=== PATIENT | male | born 1985 | race American Indian/Alaskan Native ===

== ENCOUNTER 2016-12-15 15:40 | Inpatient (IN) | payer OTHER ==
[2016-12-15] MEDS ORDERED: VALIUM IM ONE (16:43)
[2016-12-15] MEDS ORDERED: KEPPRA PO ONE (16:58)
[2016-12-15 17:00] LABS: Urine Drugs of Abuse Note Disclamer
--- NOTE | 2016-12-15 17:07 | Emergency Department Report ---
ED Seizure HPI - General Chief Complaint: Seizure Stated Complaint: SEIZURE Time Seen by Provider: 12/15/16 16:41 Source: patient, family, EMS (ems notes not available at time of chart dictation), RN notes reviewed, old records reviewed Mode of arrival: Stretcher Limitations: Altered Mental Status - History of Present Illness Initial Comments: This is a 31-year-old male. He is previously unknown to me. Has a past medical history of seizure disorder, supposed to be on carbamazepine, 300 mg twice daily, and Keppra, 500 mg twice daily, has a known history of noncompliance with antiepileptic drugs, is known to consume and abuse marijuana. Patient is brought to the hospital by EMS for possible seizure. EMS documentation is not available at this time. The patient reports that he's had a seizure, but he cannot tell me how he knows he had a seizure. He is somewhat confused in the emergency room, denies pain except for head pain, but he cannot further describe the head pain. He is not homicidal or suicidal, he denies chest pain and shortness of breath. He makes multiple requests to drink water. MD Complaint: possible seizure -: unknown Description of Episode: post-event confusion Seizure History: known seizure disorder, history of non-compliance Place: home Possible Precipitating Event: other (unknown) Associated Symptoms: confusion - Related Data Previous Rx's Medication Instructions Recorded Last Taken Type carBAMazepine [TEGretol] 300 mg PO BID 30 Days 10/23/16 Unknown Rx levETIRAcetam [Keppra TAB] 500 mg PO BID #60 tablet 10/23/16 Unknown Rx Allergies Allergy/AdvReac Type Severity Reaction Status Date / Time Penicillins Allergy Rash Verified 03/02/16 16:12 ED Review of Systems ROS: Stated complaint: SEIZURE Other details as noted in HPI Comment: Unobtainable due to pts medical conditions Constitutional: malaise Eyes: denies: vision change ENT: denies: epistaxis Respiratory: denies: cough Cardiovascular: denies: chest pain Gastrointestinal: denies: abdominal pain Genitourinary: as per HPI Musculoskeletal: as per HPI Skin: as per HPI Neurological: headache, weakness Psychiatric: as per HPI ED Past Medical Hx - Past Medical History Hx Congestive Heart Failure: No Hx Diabetes: No Hx Seizures: Yes Hx Asthma: No Hx COPD: No Hx HIV: No Additional medical history: closed head injury 2003 - Surgical History Additional Surgical History: left hand surgery. left leg surgery- steel rafael - Social History Smoking Status: Current Every Day Smoker Substance Use Type: None - Medications Home Medications: Home Medications Medication Instructions Recorded Confirmed Last Taken Type carBAMazepine [TEGretol] 300 mg PO BID 30 Days 10/23/16 12/15/16 Unknown Rx levETIRAcetam [Keppra TAB] 500 mg PO BID #60 tablet 10/23/16 12/15/16 Unknown Rx ED Physical Exam - General Limitations: Altered Mental Status General appearance: in no apparent distress - Head Head exam: Present: atraumatic, normocephalic - Eye Eye exam: Present: normal appearance, PERRL, EOMI. Absent: nystagmus - ENT ENT exam: Present: normal exam, normal orophraynx, mucous membranes moist, normal external ear exam - Neck Neck exam: Present: normal inspection, full ROM. Absent: tenderness, meningismus - Respiratory Respiratory exam: Present: normal lung sounds bilaterally. Absent: respiratory distress, wheezes, rales, rhonchi, stridor, chest wall tenderness - Cardiovascular Cardiovascular Exam: Present: regular rate, normal rhythm, normal heart sounds. Absent: bradycardia, tachycardia, irregular rhythm, systolic murmur, diastolic murmur, rubs, gallop - GI/Abdominal GI/Abdominal exam: Present: soft, normal bowel sounds. Absent: distended, tenderness, guarding, rebound, rigid, pulsatile mass - Rectal Rectal exam: Present: deferred - Extremities Exam Extremities exam: Present: normal inspection, full ROM, normal capillary refill. Absent: tenderness, pedal edema, joint swelling, calf tenderness - Back Exam Back exam: Present: normal inspection, full ROM. Absent: tenderness, CVA tenderness (R), CVA tenderness (L), muscle spasm, paraspinal tenderness, vertebral tenderness - Neurological Exam Neurological exam: Present: alert (patient is alert to name, month, location. However, he cannot recall events that led to him to come to the emergency room, he makes multiple requests to drink, and he is somewhat postictal.), oriented X3 - Psychiatric Psychiatric exam: Present: anxious - Skin Skin exam: Present: warm, dry, intact, normal color. Absent: rash ED Course Vital Signs 12/15/16 12/15/16 12/15/16 16:14 16:17 17:10 Temperature 97.9 F Pulse Rate 69 Pulse Rate [ From Monitor] Respiratory 16 18 18 Rate Blood Pressure 120/63 [Left] O2 Sat by Pulse 99 98 98 Oximetry 12/15/16 12/16/16 12/16/16 19:18 01:43 04:00 Temperature Pulse Rate 74 87 Pulse Rate [ 69 From Monitor] Respiratory 16 16 20 Rate Blood Pressure 130/67 140/89 [Left] O2 Sat by Pulse 95 98 95 Oximetry 12/16/16 05:54 Temperature Pulse Rate 85 Pulse Rate [ From Monitor] Respiratory 20 Rate Blood Pressure 146/63 [Left] O2 Sat by Pulse 94 Oximetry - Reevaluation(s) Reevaluation #1: 12/15/16 17:05 Differential diagnosis: Breakthrough seizure secondary to medication noncompliance, drug use, marijuana abuse, intracranial injury, cervical spine injury, pneumonia, postictal state Assessment and plan: 31-year-old male with known history of seizure disorder, marijuana consumption, noncompliance with antiepileptic drug therapy. His neurologic exam is nonfocal, however he is agitated, is a poor historian, and required diazepam to allow him to participate in his medical care. No family is available for collateral information at this time. His old medical records are reviewed. He will be loaded empirically with Keppra, carbamazepine. We will obtain x-ray of the chest, CT of the brain and cervical spine. We will reassess after initial data points. Reevaluation #2: 12/15/16 17:45 Sleeping comfortably. Elevated CK appreciated, does not require IV fluids, and we'll decrease on its own with oral fluids. Mild decrease in CO2 likely secondary to convulsive activity. X-ray of the chest negative. CT scans are pending. Reevaluation #3: 12/15/16 18:36 patient threw up while receiving oral Keppra. The patient is refusing CT scan. I go back to evaluate the patient, and he is arousable to name, but cannot answer open-ended or close ended questions. I suspect that he is sedated from the Valium, and postictal. He does not demonstrate decision- making capacity at this time. This is most likely combination of the aforementioned factors. does not require 1013. he simply needs to metabolize and wake up from his postictal event. He will be medicated with Haldol to facilitate acquisition of diagnostic studies. IV fluids, IV Keppra, IV nausea medication ordered as well. Reevaluation #4: 12/16/16 01:36 patient has been observed in the ER for a prolonged period of time. He is sleepy, but arousable. He ambulated with difficulty with a one- person assist. During his trial of ambulation, he had to stop, date puller next to a garbage spell, and vomited multiple times. Patient has been observed in the ER for a prolonged period of time, and treated appropriately. However, given his relative unsteady gait, intractable nausea or vomiting, I don't believe he is safe for outpatient management at this time. Case is discussed with the Hospital physician, Dr. Wing, who accepts the patient to his service. ED Medical Decision Making - Lab Data Result diagrams: 12/16/16 08:27 12/15/16 17:03 Vital Signs 12/15/16 16:14 Respiratory 16 Rate O2 Sat by Pulse 99 Oximetry Vital Signs 12/15/16 12/15/16 12/15/16 16:14 16:17 17:10 Temperature 97.9 F Pulse Rate 69 Respiratory 16 18 18 Rate Blood Pressure 120/63 [Left] O2 Sat by Pulse 99 98 98 Oximetry Lab Results 12/15/16 12/15/16 12/15/16 Range/Units 16:39 16:39 16:41 WBC (4.5-11.0) K/mm3 RBC (3.65-5.03) M/mm3 Hgb (11.8-15.2) gm/dl Hct (35.5-45.6) % MCV (84-94) fl MCH (28-32) pg MCHC (32-34) % RDW (13.2-15.2) % Plt Count (140-440) K/mm3 Sodium (137-145) mmol/L Potassium (3.6-5.0) mmol/L Chloride (98-107) mmol/L Carbon Dioxide (22-30) mmol/L Anion Gap mmol/L BUN (9-20) mg/dL Creatinine (0.8-1.5) mg/dL Estimated GFR ml/min BUN/Creatinine Ratio % Glucose (75-100) mg/dL POC Glucose 90 (70-105) Calcium (8.4-10.2) mg/dL Total Creatine Kinase (55-170) units/L Urine Color Yellow (Yellow) Urine Turbidity Slightly-cloudy (Clear) Urine pH 5.0 (5.0-7.0) Ur Specific [place] 1.010 (1.003-1.030) Urine Protein <15 mg/dl (Negative) mg/dL Urine Glucose (UA) Neg (Negative) mg/dL Urine Ketones Tr (Negative) mg/dL Urine Blood Lg (Negative) Urine Nitrite Neg (Negative) Urine Bilirubin Neg (Negative) Urine Urobilinogen < 2.0 (<2.0) mg/dL Ur Leukocyte Esterase Mod (Negative) Urine WBC (Auto) 3.0 (0.0-6.0) /HPF Urine RBC (Auto) 3.0 (0.0-6.0) /HPF U Epithel Cells (Auto) 4.0 (0-13.0) /HPF Urine Mucus Few /HPF Urine Opiates Screen Presumptive negative Urine Methadone Screen Presumptive negative Ur Barbiturates Screen Presumptive negative Ur Phencyclidine Scrn Presumptive negative Ur Amphetamines Screen Presumptive negative U Benzodiazepines Scrn Presumptive negative Urine Cocaine Screen Presumptive negative 12/15/16 12/15/16 12/15/16 Range/Units 17:03 17:03 17:03 WBC 15.4 H (4.5-11.0) K/mm3 RBC 5.46 H (3.65-5.03) M/mm3 Hgb 15.1 (11.8-15.2) gm/dl Hct 46.4 H (35.5-45.6) % MCV 85 (84-94) fl MCH 28 (28-32) pg MCHC 33 (32-34) % RDW 13.9 (13.2-15.2) % Plt Count 175 (140-440) K/mm3 Sodium 140 (137-145) mmol/L Potassium 4.4 (3.6-5.0) mmol/L Chloride 106.1 (98-107) mmol/L Carbon Dioxide 17 L (22-30) mmol/L Anion Gap 21 mmol/L BUN 13 (9-20) mg/dL Creatinine 1.1 (0.8-1.5) mg/dL Estimated GFR > 60 ml/min BUN/Creatinine Ratio 11.81 % Glucose 91 (75-100) mg/dL POC Glucose (70-105) Calcium 8.7 (8.4-10.2) mg/dL Total Creatine Kinase 695 H (55-170) units/L Urine Color (Yellow) Urine Turbidity (Clear) Urine pH (5.0-7.0) Ur Specific [place] (1.003-1.030) Urine Protein (Negative) mg/dL Urine Glucose (UA) (Negative) mg/dL Urine Ketones (Negative) mg/dL Urine Blood (Negative) Urine Nitrite (Negative) Urine Bilirubin (Negative) Urine Urobilinogen (<2.0) mg/dL Ur Leukocyte Esterase (Negative) Urine WBC (Auto) (0.0-6.0) /HPF Urine RBC (Auto) (0.0-6.0) /HPF U Epithel Cells (Auto) (0-13.0) /HPF Urine Mucus /HPF Urine Opiates Screen Urine Methadone Screen Ur Barbiturates Screen Ur Phencyclidine Scrn Ur Amphetamines Screen U Benzodiazepines Scrn Urine Cocaine Screen Lab Results 12/15/16 Range/Units 16:41 POC Glucose 90 (70-105) - Radiology Data Radiology results: pending, report reviewed, image reviewed interpreted by me: X-ray of the chest is negative for acute disease. Noncontrast CT scan of the head and cervical spine are negative. Critical care attestation.: If time is entered above; I have spent that time in minutes in the direct care of this critically ill patient, excluding procedure time. ED Disposition Clinical Impression: Seizure, Noncompliance with medication regimen, Nausea and vomiting, Unsteady gait Disposition: OP ADMITTED IP TO THIS HOSP Is pt being admited?: Yes Does the pt Need Aspirin: No Condition: Fair
[2016-12-15 17:27] LABS: Hematocrit 46.4 % (35.5-45.6); Hemoglobin 15.1 gm/dl (11.8-15.2); Mean Corpuscular HGB Conc 33 % (32-34); Mean Corpuscular Hemoglobin 28 pg (28-32); Mean Corpuscular Volume 85 fl (84-94); Platelet Count 175 K/mm3 (140-440); Red Blood Count 5.46 M/mm3 (3.65-5.03); Red Cell Distribution Width 13.9 % (13.2-15.2); White Blood Count 15.4 K/mm3 (4.5-11.0)
[2016-12-15 17:34] LABS: Bilirubin,Urine NEG (Negative); Blood,Urine LG (Negative); Ketones,Urine TR mg/dL (Negative); Leukocyte Esterase,Urine MOD (Negative); Mucus,Urine FEW /HPF; Nitrite,Urine NEG (Negative); Protein,Urine <15 mg/dL mg/dL (Negative); Urobilinogen,Urine < 2.0 mg/dL (<2.0)
[2016-12-15 17:37] LABS: Anion Gap 21 mmol/L; BUN/Creatinine Ratio 11.81; Blood Urea Nitrogen 13 mg/dL (9-20); Calcium 8.7 mg/dL (8.4-10.2); Carbon Dioxide 17 mmol/L (22-30); Chloride 106.1 mmol/L (98-107); Glucose 91 mg/dL (75-100); Potassium 4.4 mmol/L (3.6-5.0); Sodium 140 mmol/L (137-145)
[2016-12-15] MEDS ORDERED: NACL 0.9% 1000 ML 1,000 ML IV ONE (18:33)
[2016-12-15] MEDS ORDERED: HALDOL IM ONE (18:33)
[2016-12-15] MEDS ORDERED: KEPPRA 1,000 MG in D5W 100 ML IV ONE (18:33)
[2016-12-15] MEDS ORDERED: KEPPRA 1,000 MG/NS 0.75% 100ML 1,000 MG/100 ML BAG IV ONE (20:07)
--- NOTE | 2016-12-15 20:15 | Cat Scan Report ---
FINAL REPORT EXAM: CT HEAD/BRAIN WO CON HISTORY: seizure TECHNIQUE: CT was performed from the foramen magnum through the vertex in the axial plane without the use of intravenous contrast. PRIORS: 04/11/2016 FINDINGS: The messer/white matter attenuation pattern is normal. There is no mass lesion or mass effect. There are no abnormal extra-axial fluid collections. There is no evidence of acute intracranial hemorrhage or infarct. The ventricles are of normal size and configuration. The skull and orbits are unremarkable. The visualized paranasal sinuses are clear. IMPRESSION: Normal CT of the head.
--- NOTE | 2016-12-15 20:21 | Cat Scan Report ---
FINAL REPORT EXAM: CT CERVICAL SPINE WO CON HISTORY: seizure ams TECHNIQUE: Helical axial CT imaging of the cervical spine. Images are reconstructed in the sagittal and coronal planes. PRIORS: None. FINDINGS: The vertebral bodies have normal height and alignment. There is no evidence of fracture or subluxation. The paraspinous soft tissues are unremarkable. IMPRESSION: No evidence of acute fracture or subluxation.
[2016-12-16] MEDS ORDERED: ZOFRAN IV ONE (00:13)
--- NOTE | 2016-12-16 02:06 | History and Physical Report ---
History of Present Illness Date of examination: 12/16/16 Date of admission: 12/16/16 Chief complaint: AMS History of present illness: This is a 31-year-old male with past medical history of seizure disorder, supposed to be on carbamazepine, 300 mg twice daily, and Keppra, 500 mg twice daily, has a known history of noncompliance with antiepileptic drugs, and marijuana abuse. Patient is brought to the hospital by EMS for possible seizure. Patient was sleepy by the time of examination and couldn't gave me much history. Patient was on observation in the ED more than 8 hours and decided to be admitted to the floor. Past History Past Medical History: seizures Past Surgical History: No surgical history Social history: other (Coldn't obtained because the patient is sleepy) Family history: other (Coldn't obtained because the patient is sleepy) Medications and Allergies Allergies Allergy/AdvReac Type Severity Reaction Status Date / Time Penicillins Allergy Rash Verified 03/02/16 16:12 Home Medications Medication Instructions Recorded Confirmed Last Taken Type carBAMazepine [TEGretol] 300 mg PO BID 30 Days 10/23/16 12/15/16 Unknown Rx levETIRAcetam [Keppra TAB] 500 mg PO BID #60 tablet 10/23/16 12/15/16 Unknown Rx Active Meds: Active Medications Carbamazepine (Tegretol) 300 mg PO BID CONCETTA Enoxaparin Sodium (Lovenox) 40 mg SUB-Q QDAY CONCETTA Levetiracetam (Keppra) 500 mg PO BID CONCETTA Review of Systems ROS unobtainable: due to mental status (Coldn't obtained because the patient is sleepy and confusion) Exam - Physical Exam Narrative exam: Not in cardiopulmonary distress. The patient appeared well nourished and normally developed. Vital signs as documented. Head exam is unremarkable. No scleral icterus . Neck is without jugular venous distension, thyromegaly, or carotid bruits. Lungs are clear to auscultation. Cardiac exam reveals regular rate and Rhythm. First and second heart sounds normal. No murmurs, rubs or gallops. Abdominal exam reveals normal bowel sounds, no masses, no organomegaly and no aortic enlargement. Extremities are nonedematous and both femoral and pedal pulses are normal. UTILITY ACCOUNTS DIRECTOR: Alert and oriented 1. - Constitutional Vitals: Temp Pulse Resp BP Pulse Ox 97.9 F 87 16 140/89 98 12/15/16 16:17 12/16/16 01:43 12/16/16 01:43 12/16/16 01:43 12/16/16 01:43 Results - Labs CBC & Chem 7: 12/15/16 17:03 12/15/16 17:03 Labs: Laboratory Last Values WBC 15.4 K/mm3 (4.5-11.0) H 12/15/16 17:03 RBC 5.46 M/mm3 (3.65-5.03) H 12/15/16 17:03 Hgb 15.1 gm/dl (11.8-15.2) 12/15/16 17:03 Hct 46.4 % (35.5-45.6) H 12/15/16 17:03 MCV 85 fl (84-94) 12/15/16 17:03 MCH 28 pg (28-32) 12/15/16 17:03 MCHC 33 % (32-34) 12/15/16 17:03 RDW 13.9 % (13.2-15.2) 12/15/16 17:03 Plt Count 175 K/mm3 (140-440) 12/15/16 17:03 Sodium 140 mmol/L (137-145) 12/15/16 17:03 Potassium 4.4 mmol/L (3.6-5.0) 12/15/16 17:03 Chloride 106.1 mmol/L (98-107) 12/15/16 17:03 Carbon Dioxide 17 mmol/L (22-30) L 12/15/16 17:03 Anion Gap 21 mmol/L 12/15/16 17:03 BUN 13 mg/dL (9-20) 12/15/16 17:03 Creatinine 1.1 mg/dL (0.8-1.5) 12/15/16 17:03 Estimated GFR > 60 ml/min 12/15/16 17:03 BUN/Creatinine Ratio 11.81 % 12/15/16 17:03 Glucose 91 mg/dL (75-100) 12/15/16 17:03 POC Glucose 90 (70-105) 12/15/16 16:41 Calcium 8.7 mg/dL (8.4-10.2) 12/15/16 17:03 Total Creatine Kinase 695 units/L (55-170) H 12/15/16 17:03 Urine Color Yellow (Yellow) 12/15/16 16:39 Urine Turbidity Slightly-cloudy (Clear) 12/15/16 16:39 Urine pH 5.0 (5.0-7.0) 12/15/16 16:39 Ur Specific [place] 1.010 (1.003-1.030) 12/15/16 16:39 Urine Protein <15 mg/dl mg/dL (Negative) 12/15/16 16:39 Urine Glucose (UA) Neg mg/dL (Negative) 12/15/16 16:39 Urine Ketones Tr mg/dL (Negative) 12/15/16 16:39 Urine Blood Lg (Negative) 12/15/16 16:39 Urine Nitrite Neg (Negative) 12/15/16 16:39 Urine Bilirubin Neg (Negative) 12/15/16 16:39 Urine Urobilinogen < 2.0 mg/dL (<2.0) 12/15/16 16:39 Ur Leukocyte Esterase Mod (Negative) 12/15/16 16:39 Urine WBC (Auto) 3.0 /HPF (0.0-6.0) 12/15/16 16:39 Urine RBC (Auto) 3.0 /HPF (0.0-6.0) 12/15/16 16:39 U Epithel Cells (Auto) 4.0 /HPF (0-13.0) 12/15/16 16:39 Urine Mucus Few /HPF 12/15/16 16:39 Urine Opiates Screen Presumptive negative 12/15/16 16:39 Urine Methadone Screen Presumptive negative 12/15/16 16:39 Ur Barbiturates Screen Presumptive negative 12/15/16 16:39 Ur Phencyclidine Scrn Presumptive negative 12/15/16 16:39 Ur Amphetamines Screen Presumptive negative 12/15/16 16:39 U Benzodiazepines Scrn Presumptive negative 12/15/16 16:39 Urine Cocaine Screen Presumptive negative 12/15/16 16:39 U Marijuana (THC) Screen Presumptive positive 12/15/16 16:39 Drugs of Abuse Note Disclamer 12/15/16 16:39 Assessment and Plan Assessment and plan: Seizure disorder with post ictal confusion - Restart his home medications - Neuro check - Neurology consult DVT prophylaxis - Lovenox Disposition - Admitted to the floor Advance Directives: Yes VTE prophylaxis?: Chemical Plan of care discussed with patient/family: Yes
--- NOTE | 2016-12-16 04:27 | Admit Criteria Form ---
Admission Criteria Documentation: SEIZURE Clinical Indications for Admission to Inpatient Care (Place 'X' for any and all applicable criteria): Admission is indicated for seizure and ANY ONE of the following(1)(2)(3)(4)(5): [x ]I. Inpatient admission required rather than observation care (Also use Seizure: Observation Care Criteria as appropriate) because of ANY ONE of the following: [ ]a) Altered mental status that is severe or persistent [ ]b) New focal neurologic deficit that is severe or persistent [ ]c) Metabolic disorder (eg, hypoglycemia, hyponatremia) that is severe or persistent [ ]d) Recurrent seizure [ ]e) Outpatient antiseizure regimen cannot be established (eg , patient cannot tolerate medication, initiation requires inpatient care) [ ]f) Need for ongoing intravenous infusion of antiseizure medication [ ]g) Cardiac arrhythmias of immediate concern [ ]h) Cerebral bleeding, hydrocephalus, or vasospasm monitoring (14) [ ]i) Increased intracranial pressure or cerebral edema monitoring (15) [ x]j) Other treatment or monitoring requiring inpatient admission [ ]II. Status epilepticus [A] or repetitive seizures not controlled with emergent treatment (6)(8) [ ]III. Brain disorder (eg, tumor, edema, and hydrocephalus) that requiring monitoring or intervention available only at inpatient level of care. [ ]IV. Brain insult (eg, severe trauma, stroke, drug toxicity, or withdrawal) that requires monitoring or intervention available only at inpatient level of care (10)(11) Extended stay beyond goal length of stay may be needed for (22) [ ]a) Complications of status epilepticus [ ]b) Refractory status epilepticus [ ]c) Etiology-specific therapy for conditions such as IMMUNOLOGIST infection, head injury,eclampsia, severe metabolic abnormalities, and brain tumor [ ]d) Residual neurologic damage, [ ]e) Initiation of significant change to anticonvulsant treatment [ ]f) Older patients (65 years or older) [ ]g) Patient requiring intubation (eg, to protect airway) The original [employer] [facility] content created by [employer] has been revised. The portions of the content which have been revised are identified through the use of italic text or in bold, and [facility] [employer] has neither reviewed nor approved the modified material. All other unmodified content is copyright [facility] [employer]. Please see references footnoted in the original [facility] edition 2016 Admission Criteria Met: Yes
[2016-12-16 07:26] VITALS: BP 115/56
--- NOTE | 2016-12-16 07:50 | XRay Report ---
Single view chest: Compared to 04/11/16. History: PNA. Findings: Normal cardiomediastinal silhouette. Trachea is midline. No consolidation, pneumothorax or pleural effusion. Impression: No acute cardiopulmonary findings
[2016-12-16 08:44] LABS: Basophils % (Auto) 0.2 % (0.0-1.8); Hematocrit 46.1 % (35.5-45.6); Hemoglobin 14.7 gm/dl (11.8-15.2); Mean Corpuscular HGB Conc 32 % (32-34); Mean Corpuscular Hemoglobin 27 pg (28-32); Mean Corpuscular Volume 85 fl (84-94); Platelet Count 169 K/mm3 (140-440); Red Blood Count 5.46 M/mm3 (3.65-5.03); Red Cell Distribution Width 14.4 % (13.2-15.2); White Blood Count 13.1 K/mm3 (4.5-11.0)
[2016-12-16] MEDS ORDERED: LOVENOX SUB-Q SCH (10:00)
[2016-12-16] MEDS ORDERED: KEPPRA PO SCH (10:00)
--- NOTE | 2016-12-16 18:15 | Discharge Summary ---
Providers - Providers Date of Admission: 12/16/16 01:53 Date of discharge: 12/16/16 Attending physician: LIBORIO DERAS MD 12/16/16 02:12 Consult to Physician [CONS] Routine Consulting Provider: ROSI WHITEHEAD Reason For Exam: Seizure disorder with post ictal confusion Place consult to:: neurology Primary care physician: DIRECTOR OF DIVERSITY AND INCLUSION Hospitalization Reason for admission: seizure Condition: Fair Hospital course: Patient is a 31-year-old male with past medical history of seizure disorder, supposed to be on carbamazepine, 300 mg twice daily, and Keppra, 500 mg twice daily, has a known history of noncompliance with antiepileptic drugs, and marijuana abuse. Patient is brought to the hospital by EMS for possible seizure. Patient was sleepy by the time of examination and couldn't gave me much history. He was admitted to the hospital after he was in the ED for more than 8 hours with no improvement. Patient on my evaluation today is awake alert oriented. Reports that he had missed a few of his medications. He does have rhabdomyolysis for which she was getting fluids unfortunately creatinine kinase was still increase to 6000 the patient refused further treatments demanded that his IV lines be removed. I did advise him against this and also informed him of potential renal injury from this the patient verbalized understanding of all the risk associated reportedly he does not want any further treatment will like to leave the hospital. He does verbalize that he understands that he is not to drive and does not drive a car into the state law [place]. Had multiple episodes of this and knows his rights to be possible to leave the hospital Discharge diagnosis * Seizure * Acute rhabdomyolysis secondary to nontraumatic events * Noncompliance * Post ictal confusional state Disposition: LEFT AGAINST MEDICAL ADVICE Time spent for discharge: 35 mins Core Measure Documentation - Palliative Care Palliative Care/ Comfort Measures: Not Applicable - Core Measures Any of the following diagnoses?: none - VTE Discharge Requirements Deep Vein Thrombosis/Pulmonary Embolism Present on Admission: No Exam - Physical Exam Narrative exam: VITAL SIGNS: Reviewed. GENERAL: The patient appeared well nourished and normally developed. Vital signs as documented. HEAD: No signs of head trauma. EYES: Pupils are equal. Extraocular motions intact. EARS: Hearing grossly intact. MOUTH: Oropharynx is normal. NECK: No adenopathy, no JVD. CHEST: Chest with clear breath sounds bilaterally. No wheezes, rales, or rhonchi. CARDIAC: Regular rate and rhythm. S1 and S2, without murmurs, gallops, or rubs. VASCULAR: No Edema. Peripheral pulses normal and equal in all extremities. ABDOMEN: Soft, without detectable tenderness. No sign of distention. No rebound or guarding, and no masses palpated. Bowel Sounds normal. MUSCULOSKELETAL: Good range of motion of all major joints. Extremities without clubbing, cyanosis or edema. NEUROLOGIC EXAM: Alert and oriented x 3. No focal sensory or strength deficits. Speech normal. Follows commands. PSYCHIATRIC: Mood normal. SKIN: No rash or lesions. - Constitutional Vitals: Temp Pulse Resp BP Pulse Ox 98.2 F 63 20 115/56 99 12/16/16 07:24 12/16/16 07:24 12/16/16 10:00 12/16/16 07:24 12/16/16 07:24 Plan Follow up with: PRIMARY MD LEIGH [Primary Care Provider] - 3-5 Days Forms: AMA Form
== END 2016-12-16 13:24 | disposition left against medical advice (07) | DRG 101 ==
LOC: ED 15:40 → 3A 12-16 01:53
PROVIDERS: ADMIT Internal Medicine; ATTEND Internal Medicine
DX: G40.909 Epilepsy, unspecified, not intractable, without status epilepticus (principal); M62.82 Rhabdomyolysis; F12.10 Cannabis abuse, uncomplicated; R41.0 Disorientation, unspecified; F17.210 Nicotine dependence, cigarettes, uncomplicated; Z91.14 Patient's other noncompliance with medication regimen; Z88.0 Allergy status to penicillin
CPT/HCPCS: 36415; 70450; 71010; 72125; 80048; 80307; 81001; 82550; 82962; 85025; 85027; J1630; J1650; J1953; J2405; J3360; J7030

== ENCOUNTER 2017-04-14 13:18 | Emergency (ER) | payer SELFPAY ==
[2017-04-14 13:27] VITALS: BP 126/70
== END 2017-04-14 13:47 | disposition left against medical advice (07) ==
LOC: ED 13:18
DX: R56.9 Unspecified convulsions (principal); Z53.21 Procedure and treatment not carried out due to patient leaving prior to being seen by health care provider

== ENCOUNTER 2017-04-14 15:10 | Emergency (ER) | payer SELFPAY ==
[2017-04-14] MEDS ORDERED: ATIVAN ONE ×2 (17:00→17:16)
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
[2017-04-14] MEDS ORDERED: HALDOL IM ONE (17:16)
[2017-04-14] MEDS ORDERED: HALDOL ONE (17:16)
[2017-04-14] MEDS ORDERED: ATIVAN IV ONE (17:17)
[2017-04-14 18:59] LABS: Basophils % (Auto) 0.2 % (0.0-1.8); Hemoglobin 15.3 gm/dl (11.8-15.2); Mean Corpuscular HGB Conc 33 % (32-34); Mean Corpuscular Hemoglobin 28 pg (28-32); Mean Corpuscular Volume 86 fl (84-94); Red Blood Count 5.45 M/mm3 (3.65-5.03); Red Cell Distribution Width 15.2 % (13.2-15.2); White Blood Count 11.2 K/mm3 (4.5-11.0)
[2017-04-14 19:02] LABS: Platelet Count 155 K/mm3 (140-440)
[2017-04-14 19:55] LABS: Albumin 4.6 g/dL (3.9-5); Albumin/Globulin Ratio 1.3 %; Alkaline Phosphatase 49 units/L (35-129); Anion Gap 24 mmol/L; Blood Urea Nitrogen 12 mg/dL (9-20); Calcium 9.2 mg/dL (8.4-10.2); Carbon Dioxide 18 mmol/L (22-30); Glucose 93 mg/dL (75-100); Potassium 4.8 mmol/L (3.6-5.0); Sodium 137 mmol/L (137-145); Total Protein 8.2 g/dL (6.3-8.2)
[2017-04-14 20:46] LABS: Alanine Aminotransferase 18 units/L (7-56)
--- NOTE | 2017-04-14 22:03 | Cat Scan Report ---
FINAL REPORT PROCEDURE: CT HEAD/BRAIN WO CON TECHNIQUE: Computerized tomography of the head was performed without contrast material. HISTORY: seizure COMPARISON: No prior studies are available for comparison. FINDINGS: Skull and scalp: Normal. Paranasal sinuses: Normal. Ventricles and subarachnoid spaces: Normal. Cerebrum: No evidence of hemorrhage, acute infarction or mass . Cerebellum and brainstem: No evidence of hemorrhage, acute infarction or mass. Vasculature: Normal. Comments: Adenoid hypertrophy is noted. IMPRESSION: No acute intracranial abnormality. Adenoid hypertrophy.
[2017-04-15 00:20] VITALS: BP 131/62
== END 2017-04-15 00:20 | disposition home or self-care (01) ==
LOC: ED 15:10
DX: G40.409 Other generalized epilepsy and epileptic syndromes, not intractable, without status epilepticus (principal); F17.200 Nicotine dependence, unspecified, uncomplicated; Z88.0 Allergy status to penicillin
CPT/HCPCS: 36415; 70450; 80053; 82962; 85025; 93005; 93010; 96372; 96374; 99291; J1630; J2060

== ENCOUNTER 2017-04-22 23:29 | Emergency (ER) | payer OTHER ==
[2017-04-23] MEDS ORDERED: ATIVAN IV ONE (01:22)
[2017-04-23] MEDS ORDERED: KEPPRA 1,000 MG/NS 0.75% 100ML 1,000 MG/100 ML BAG IV ONE (01:24)
[2017-04-23] MEDS ORDERED: HALDOL IM PRN (01:31)
[2017-04-23] MEDS ORDERED: BENADRYL IM PRN (01:31)
--- NOTE | 2017-04-23 01:31 | Emergency Department Report ---
HPI - General Chief Complaint: Seizure Time Seen by Provider: 04/23/17 01:18 - HPI HPI: Room 17 The patient is 32-year-old male presenting with a chief complaint of seizure. The patient reportedly had 2 seizures today 1 while being brought to the ED by his in the car. By the time the patient was brought back to his room he was found to be postictal. Patient is currently postictal. Patient has a history of becoming very combative when coming out of his postictal state subsequently soft wrist restraints were ordered. The patient's is currently not at bedside and staff is attempting to locate her Location: [see above] Duration: [see above] Quality: [see above] Severity: [see above] Modifying factors: [see above] Context: [see above] Mode of transportation: [not driving] ED Past Medical Hx - Past Medical History Previous Medical History?: Yes Hx Seizures: Yes Additional medical history: closed head injury 2003 - Surgical History Past Surgical History?: Yes Additional Surgical History: left hand surgery. left leg surgery- steel rafael - Family History Family history: no significant - Social History Smoking Status: Unknown if ever smoked Substance Use Type: None - Medications Home Medications: Home Medications Medication Instructions Recorded Confirmed Last Taken Type carBAMazepine [TEGretol] 300 mg PO BID 30 Days 10/23/16 12/15/16 Unknown Rx levETIRAcetam [Keppra TAB] 500 mg PO BID #60 tablet 10/23/16 12/15/16 Unknown Rx carBAMazepine [TEGretol] 300 mg PO Q12HR #30 tab 04/14/17 Unknown Rx levETIRAcetam [Keppra TAB] 500 mg PO BID #60 tablet 04/23/17 Unknown Rx ED Review of Systems ROS: Stated complaint: SEIZURE Other details as noted in HPI Comment: Unobtainable due to pts medical conditions Physical Exam - Physical Exam Vital Signs: Vital Signs 04/22/17 04/22/17 04/22/17 23:27 23:28 23:29 Temperature Pulse Rate 53 L 53 L Respiratory 12 15 14 Rate Blood Pressure 137/87 O2 Sat by Pulse 100 100 Oximetry 04/22/17 04/22/17 04/22/17 23:30 23:31 23:33 Temperature Pulse Rate 52 L 55 L Respiratory 14 12 16 Rate Blood Pressure 130/88 130/88 130/88 O2 Sat by Pulse 100 100 100 Oximetry 04/22/17 04/22/17 04/22/17 23:35 23:37 23:39 Temperature Pulse Rate 55 L Respiratory 16 16 13 Rate Blood Pressure 130/88 130/88 130/88 O2 Sat by Pulse 100 100 100 Oximetry 04/22/17 04/22/17 04/22/17 23:41 23:42 23:43 Temperature 97.1 F L Pulse Rate 54 L 47 L Respiratory 13 12 Rate Blood Pressure 130/88 130/88 O2 Sat by Pulse 100 100 Oximetry 04/22/17 04/22/17 04/22/17 23:45 23:47 23:49 Temperature Pulse Rate 47 L 54 L 54 L Respiratory 17 17 18 Rate Blood Pressure 125/87 125/87 125/87 O2 Sat by Pulse 100 100 100 Oximetry 04/22/17 04/22/17 04/22/17 23:51 23:53 23:55 Temperature Pulse Rate 53 L 54 L 54 L Respiratory 18 19 20 Rate Blood Pressure 125/87 125/87 125/87 O2 Sat by Pulse 100 100 100 Oximetry 04/22/17 04/22/17 04/23/17 23:57 23:59 00:00 Temperature Pulse Rate 55 L 58 L 53 L Respiratory 19 17 12 Rate Blood Pressure 125/87 125/87 124/80 O2 Sat by Pulse 100 100 97 Oximetry 04/23/17 00:01 Temperature Pulse Rate 55 L Respiratory 18 Rate Blood Pressure 124/80 O2 Sat by Pulse 100 Oximetry Physical Exam: GENERAL: The patient is well-developed well-nourished male sleeping on stretcher postictal. [] HEENT: Normocephalic. Atraumatic. NECK: Supple. Trachea midline CHEST/LUNGS: Clear to auscultation. There is no respiratory distress noted. HEART/CARDIOVASCULAR: Regular. There is no tachycardia. There is no gallop rub or murmur. ABDOMEN: Abdomen is soft, nontender. Patient has normal bowel sounds. There is no abdominal distention. SKIN: There is no rash. There is no edema. There is no diaphoresis. NEURO: The patient is currently postictal and resting comfortably MUSCULOSKELETAL: There is no evidence of acute injury. ED Course Vital Signs 04/22/17 04/22/17 04/22/17 23:27 23:28 23:29 Temperature Pulse Rate 53 L 53 L Respiratory 12 15 14 Rate Blood Pressure 137/87 O2 Sat by Pulse 100 100 Oximetry 04/22/17 04/22/17 04/22/17 23:30 23:31 23:33 Temperature Pulse Rate 52 L 55 L Respiratory 14 12 16 Rate Blood Pressure 130/88 130/88 130/88 O2 Sat by Pulse 100 100 100 Oximetry 04/22/17 04/22/17 04/22/17 23:35 23:37 23:39 Temperature Pulse Rate 55 L Respiratory 16 16 13 Rate Blood Pressure 130/88 130/88 130/88 O2 Sat by Pulse 100 100 100 Oximetry 04/22/17 04/22/17 04/22/17 23:41 23:42 23:43 Temperature 97.1 F L Pulse Rate 54 L 47 L Respiratory 13 12 Rate Blood Pressure 130/88 130/88 O2 Sat by Pulse 100 100 Oximetry 04/22/17 04/22/17 04/22/17 23:45 23:47 23:49 Temperature Pulse Rate 47 L 54 L 54 L Respiratory 17 17 18 Rate Blood Pressure 125/87 125/87 125/87 O2 Sat by Pulse 100 100 100 Oximetry 04/22/17 04/22/17 04/22/17 23:51 23:53 23:55 Temperature Pulse Rate 53 L 54 L 54 L Respiratory 18 19 20 Rate Blood Pressure 125/87 125/87 125/87 O2 Sat by Pulse 100 100 100 Oximetry 04/22/17 04/22/17 04/23/17 23:57 23:59 00:00 Temperature Pulse Rate 55 L 58 L 53 L Respiratory 19 17 12 Rate Blood Pressure 125/87 125/87 124/80 O2 Sat by Pulse 100 100 97 Oximetry 04/23/17 00:01 Temperature Pulse Rate 55 L Respiratory 18 Rate Blood Pressure 124/80 O2 Sat by Pulse 100 Oximetry - Reevaluation(s) Reevaluation #1: 04/23/17 04:49 Patient alert and oriented. No longer postictal. ED Medical Decision Making - Lab Data Result diagrams: 04/23/17 02:01 Laboratory Tests 04/23/17 02:01 Sodium 142 Potassium 3.7 Chloride 101.7 Carbon Dioxide 28 Anion Gap 16 BUN 10 Creatinine 1.1 Estimated GFR > 60 BUN/Creatinine Ratio 9.09 Glucose 91 Calcium 8.7 Magnesium 1.70 - Radiology Data Radiology results: report reviewed (CT head), image reviewed (CT head) CT head (read by radiologist)-no acute intracranial abnormality - Differential Diagnosis seizure disorder Critical care attestation.: If time is entered above; I have spent that time in minutes in the direct care of this critically ill patient, excluding procedure time. ED Disposition Clinical Impression: Seizure Disposition: DC-01 TO HOME OR SELFCARE Is pt being admited?: No Does the pt Need Aspirin: No Condition: Stable Instructions: Epilepsy (ED) Additional Instructions: Return to the emergency department immediately should you develop worsening symptoms, fever, inability to tolerate food or liquid or any other concerns. Prescriptions: levETIRAcetam [Keppra TAB] 500 mg PO BID #60 tablet Referrals: NICK BROOKS MD [Staff Physician] - 3-5 Days (Dr. Brooks is a neurologist. Please follow up with him for further evaluation) Time of Disposition: 04:49
--- NOTE | 2017-04-23 02:07 | Cat Scan Report ---
FINAL REPORT EXAM: CT HEAD/BRAIN W/O CONTRAST HISTORY: Prolonged post ictal state. TECHNIQUE: Unenhanced axial CT images of the brain were obtained. Comparison is made with prior study 04/14/2017. FINDINGS: The cortical sulci and ventricles are within normal limits for patient's age. There is no extra-axial fluid collection, mass, mass effect, midline shift, hydrocephalus, or acute intracranial hemorrhage. There is mild sinus mucosal thickening in the left maxillary sinus and within the left ethmoid air cells. Minimal sinus mucosal thickening is also seen in several anterior right ethmoid air cells. The remainder of the visualized paranasal sinuses and mastoid air cells are clear. There is no skull fracture or other osseous abnormality. Again demonstrated is prominence of the posterior nasopharyngeal soft tissues, most likely due to adenoid hypertrophy, stable. IMPRESSION: 1. No acute intracranial abnormality. 2. Mild paranasal sinus mucosal disease as described. Probable adenoidal hypertrophy.
[2017-04-23 02:42] LABS: Anion Gap 16 mmol/L; BUN/Creatinine Ratio 9.09; Blood Urea Nitrogen 10 mg/dL (9-20); Calcium 8.7 mg/dL (8.4-10.2); Carbon Dioxide 28 mmol/L (22-30); Chloride 101.7 mmol/L (98-107); Glucose 91 mg/dL (75-100); Potassium 3.7 mmol/L (3.6-5.0); Sodium 142 mmol/L (137-145)
[2017-04-23] MEDS ORDERED: ZOFRAN IV ONE (02:55)
[2017-04-23] MEDS ORDERED: ZOFRAN ONE (02:58)
[2017-04-23 05:08] VITALS: BP 122/54
== END 2017-04-23 05:00 | disposition home or self-care (01) ==
LOC: ED 23:29
DX: R56.9 Unspecified convulsions (principal); Z88.0 Allergy status to penicillin
CPT/HCPCS: 36415; 70450; 80048; 80156; 83735; 96374; 96375; 99284; J1200; J1630; J1953; J2405; J2060

== ENCOUNTER 2017-05-07 21:48 | Emergency (ER) | payer SELFPAY ==
[2017-05-07] MEDS ORDERED: KEPPRA 500 MG in D5W 100 ML IV ONE (22:37)
[2017-05-07 23:15] LABS: Basophils % (Auto) 0.7 % (0.0-1.8); Eosinophils % (Auto) 2.6 % (0.0-4.3); Hematocrit 44.9 % (35.5-45.6); Hemoglobin 14.1 gm/dl (11.8-15.2); Mean Corpuscular HGB Conc 32 % (32-34); Mean Corpuscular Hemoglobin 27 pg (28-32); Mean Corpuscular Volume 87 fl (84-94); Platelet Count 154 K/mm3 (140-440); Red Blood Count 5.18 M/mm3 (3.65-5.03); Red Cell Distribution Width 14.7 % (13.2-15.2); White Blood Count 6.9 K/mm3 (4.5-11.0)
[2017-05-07 23:36] LABS: Anion Gap 17 mmol/L; Blood Urea Nitrogen 9 mg/dL (9-20); Calcium 8.8 mg/dL (8.4-10.2); Carbon Dioxide 25 mmol/L (22-30); Chloride 104.3 mmol/L (98-107); Glucose 91 mg/dL (75-100); Potassium 4.3 mmol/L (3.6-5.0); Sodium 142 mmol/L (137-145)
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
[2017-05-08 00:46] VITALS: BP 106/52
== END 2017-05-08 01:10 | disposition home or self-care (01) ==
LOC: ED 21:48
DX: G40.909 Epilepsy, unspecified, not intractable, without status epilepticus (principal); F17.200 Nicotine dependence, unspecified, uncomplicated
CPT/HCPCS: 36415; 80048; 85025; 96365; 99284; J1953

== ENCOUNTER 2017-06-10 13:59 | Emergency (ER) | payer SELFPAY ==
[2017-06-10] MEDS ORDERED: ATIVAN ONE (14:49)
[2017-06-10 15:00] LABS: Basophils % (Auto) 0.4 % (0.0-1.8); Eosinophils % (Auto) 0.2 % (0.0-4.3); Hematocrit 44.6 % (35.5-45.6); Hemoglobin 14.5 gm/dl (11.8-15.2); Mean Corpuscular HGB Conc 33 % (32-34); Mean Corpuscular Hemoglobin 28 pg (28-32); Mean Corpuscular Volume 86 fl (84-94); Platelet Count 162 K/mm3 (140-440); Red Blood Count 5.18 M/mm3 (3.65-5.03); Red Cell Distribution Width 14.4 % (13.2-15.2); White Blood Count 10.5 K/mm3 (4.5-11.0)
[2017-06-10 15:22] LABS: Creatine Kinase MB 5.3 ng/mL (0.0-4.0)
[2017-06-10 15:24] LABS: Alanine Aminotransferase 17 units/L (7-56); Albumin 4.7 g/dL (3.9-5); Albumin/Globulin Ratio 1.6 %; Alkaline Phosphatase 44 units/L (35-129); Anion Gap 23 mmol/L; Blood Urea Nitrogen 15 mg/dL (9-20); Calcium 9.5 mg/dL (8.4-10.2); Carbon Dioxide 22 mmol/L (22-30); Chloride 98.6 mmol/L (98-107); Creatine Kinase 1239 units/L (55-170); Glucose 134 mg/dL (75-100); Potassium 4.6 mmol/L (3.6-5.0); Sodium 139 mmol/L (137-145); Total Protein 7.7 g/dL (6.3-8.2)
[2017-06-10 15:27] LABS: Bilirubin,Direct < 0.2 mg/dL (0-0.2)
--- NOTE | 2017-06-10 16:59 | Cat Scan Report ---
CT head without contrast: Headache. Normal intracranial anatomy. No focal or generalized lesions identified. No evidence of hemorrhage. Adenoidal hypertrophy. Left maxillary polyps. These findings are all unchanged from prior study of April 23, 2017. Ethmoidal inflammatory changes on the left described at that time or not currently visualized. Impressions: 1. Normal intracranial scan. 2. Hypertrophied adenoids and left maxillary polyps.
--- NOTE | 2017-06-10 17:35 | History and Physical Report ---
History of Present Illness Chief complaint: I had a seizure History of present illness: 32 YO Male with Seizure Disorder, Medication Noncompliance, Marijuana Abuse, presents to ED for evaluation. Pt had witnessed seizure in physician office. EMS notified, and patient transported to [facility]. Pt seen and evaluated in ED, pt was initially lethargic/post ictal. Pt treated with resumption of keppra, and tegretol. Pt symptoms resolved. Pt medically optimized and back to usual state of health. Pt workup negative. Pt discharged home and instructed to f/u pcp 1wk , and neurology 1wk, Pt counseled regarding medication noncompliance. Past History Past Medical History: seizures Past Surgical History: No surgical history, Other (reviewed) Social history: single. denies: alcohol abuse, prescription drug abuse, IV drug use Family history: hypertension Medications and Allergies Allergies Allergy/AdvReac Type Severity Reaction Status Date / Time Penicillins Allergy Rash Verified 04/14/17 15:46 Home Medications Medication Instructions Recorded Confirmed Last Taken Type carBAMazepine [TEGretol] 200 mg PO TID #60 tablet 05/08/17 06/10/17 06/07/17 Rx levETIRAcetam [Keppra TAB] 500 mg PO DAILY #60 tablet 05/08/17 06/10/17 Rx carBAMazepine [TEGretol] 200 mg PO TID #90 tablet 06/10/17 Unknown Rx levETIRAcetam [Keppra TAB] 500 mg PO DAILY #30 tablet 06/10/17 Unknown Rx Active Meds: Active Medications Sodium Chloride (Nacl 0.45%) 2,000 mls @ 1,000 mls/hr IV DIRECT CONCETTA Review of Systems Constitutional: no weight loss, no weight gain, no fever, no chills Ears, nose, mouth and throat: no ear pain, no ear discharge, no tinnitis, no decreased hearing, no nose pain, no nasal congestion Cardiovascular: no chest pain, no orthopnea, no palpitations, no rapid/ irregular heart beat Respiratory: no cough, no cough with sputum, no excessive sputum, no hemoptysis , no shortness of breath Gastrointestinal: no abdominal pain, no nausea, no vomiting, no diarrhea Genitourinary Male: no dysuria, no hematuria, no flank pain, no discharge, no urinary frequency, no urinary hesitancy, no incontinence Rectal: no pain, no incontinence, no bleeding Musculoskeletal: no neck stiffness, no neck pain Integumentary: no rash, no pruritis, no redness, no sores, no wounds Neurological: seizures, no head injury, no transient paralysis, no paralysis, no weakness, no vertigo, no headaches, no migraines, no convulsions, no aphasia , no change in speech Psychiatric: no anxiety, no memory loss, no change in sleep habits, no sleep disturbances, no insomnia, no change in libido Endocrine: no cold intolerance, no heat intolerance, no polyphagia, no excessive thirst, no polydipsia, no polyuria Hematologic/Lymphatic: no easy bruising, no easy bleeding Allergic/Immunologic: no urticaria, no allergic rhinitis, no wheezing Exam - Constitutional Vitals: Temp Pulse Resp BP Pulse Ox 97.8 F 73 18 122/77 98 06/10/17 15:17 06/10/17 15:17 06/10/17 15:17 06/10/17 15:17 06/10/17 15:17 General appearance: Present: no acute distress, well-nourished - EENT Eyes: Present: PERRL ENT: hearing intact, clear oral mucosa - Neck Neck: Present: supple, normal ROM - Respiratory Respiratory effort: normal Respiratory: bilateral: CTA - Cardiovascular Heart Sounds: Present: S1 & S2. Absent: rub, click - Extremities Extremities: pulses symmetrical, No edema Peripheral Pulses: within normal limits - Abdominal General gastrointestinal: Present: soft, non-tender, non-distended, normal bowel sounds Male genitourinary: Present: normal - Integumentary Integumentary: Present: clear, warm, dry - Musculoskeletal Musculoskeletal: gait normal, strength equal bilaterally - Psychiatric Psychiatric: appropriate mood/affect, intact judgment & insight - Neurologic Neurologic: CNII-XII intact, moves all extremities Results - Labs CBC & Chem 7: 06/10/17 14:45 06/10/17 14:45 Labs: Abnormal lab results 06/10/17 06/10/17 Range/Units 14:45 14:45 RBC 5.18 H (3.65-5.03) M/mm3 [place] % (Auto) 8.8 H (0.0-7.3) % [place] # 0.9 H (0.0-0.8) K/mm3 Seg Neutrophils % 75.6 H (40.0-70.0) % Seg Neutrophils # 7.9 H (1.8-7.7) K/mm3 Glucose 134 H (75-100) mg/dL Magnesium 2.70 H (1.7-2.3) mg/dL Total Creatine Kinase 1239 H (55-170) units/L CK-MB (CK-2) 5.3 H (0.0-4.0) ng/mL Assessment and Plan - Patient Problems (1) Seizure Status: Acute Plan to address problem: Pt treated with resumption of anti epileptic therapy with resolution of symptoms. Pt discharged [facility] and instructed to f/u pcp 1wk, neurology prn (2) Noncompliance with medication regimen Status: Acute Plan to address problem: Pt counseled.
--- NOTE | 2017-06-10 17:36 | Emergency Department Report ---
ED General Adult HPI - General Stated complaint: SEIZURES Time Seen by Provider: 06/10/17 14:15 Source: EMS Mode of arrival: Stretcher Limitations: Altered Mental Status - History of Present Illness Initial comments: I'm told by EMS patient was waiting in a family practitioner physician"s office to get a prescription for "pain medication". I'm not sure what the source of that data is. Medical also tells me that the patient has a history of seizures and has been previously prescribed Keppra. Apparently the patient had a generalized seizure in the doctor's office. EMS was summoned. Medics gave 5 of Versed and 5 of Haldol IM. They were unable to initiate an IV. He presented to this facility in a postictal state. Ultimately tell me he had "multiple seizures". There also is a manager community development report from family that he had "2 seizures earlier today" -: Sudden - Related Data Previous Rx's Medication Instructions Recorded Last Taken Type carBAMazepine [TEGretol] 300 mg PO BID 30 Days 10/23/16 Unknown Rx levETIRAcetam [Keppra TAB] 500 mg PO BID #60 tablet 10/23/16 Unknown Rx carBAMazepine [TEGretol] 300 mg PO Q12HR #30 tab 04/14/17 Unknown Rx levETIRAcetam [Keppra TAB] 500 mg PO BID #60 tablet 04/23/17 Unknown Rx carBAMazepine [TEGretol] 200 mg PO TID #60 tablet 05/08/17 Unknown Rx levETIRAcetam [Keppra TAB] 500 mg PO DAILY #60 tablet 05/08/17 Unknown Rx Allergies Allergy/AdvReac Type Severity Reaction Status Date / Time Penicillins Allergy Rash Verified 04/14/17 15:46 ED Review of Systems ROS: Stated complaint: SEIZURES Other details as noted in HPI Comment: Unobtainable due to pts medical conditions ED Past Medical Hx - Past Medical History Hx Congestive Heart Failure: No Hx Diabetes: No Hx Seizures: Yes Hx Asthma: No Hx COPD: No Hx HIV: No Additional medical history: closed head injury 2003 - Surgical History Additional Surgical History: left hand surgery. left leg surgery- steel rafael - Social History Smoking Status: Current Every Day Smoker Substance Use Type: None - Medications Home Medications: Home Medications Medication Instructions Recorded Confirmed Last Taken Type carBAMazepine [TEGretol] 300 mg PO BID 30 Days 10/23/16 12/15/16 Unknown Rx levETIRAcetam [Keppra TAB] 500 mg PO BID #60 tablet 10/23/16 12/15/16 Unknown Rx carBAMazepine [TEGretol] 300 mg PO Q12HR #30 tab 04/14/17 Unknown Rx levETIRAcetam [Keppra TAB] 500 mg PO BID #60 tablet 04/23/17 Unknown Rx carBAMazepine [TEGretol] 200 mg PO TID #60 tablet 05/08/17 Unknown Rx levETIRAcetam [Keppra TAB] 500 mg PO DAILY #60 tablet 05/08/17 Unknown Rx ED Physical Exam - General Limitations: Altered Mental Status General appearance: postictal - Head Head exam: Present: atraumatic, normocephalic - Eye Eye exam: Present: normal appearance, PERRL, EOMI. Absent: scleral icterus - ENT ENT exam: Present: mucous membranes moist - Neck Neck exam: Present: normal inspection - Respiratory Respiratory exam: Present: normal lung sounds bilaterally. Absent: respiratory distress - Cardiovascular Cardiovascular Exam: Present: regular rate, normal rhythm. Absent: systolic murmur, diastolic murmur, rubs, gallop - GI/Abdominal GI/Abdominal exam: Present: soft, normal bowel sounds. Absent: distended, tenderness, guarding, rebound, rigid - Rectal Rectal exam: Present: deferred - Extremities Exam Extremities exam: Present: normal inspection - Back Exam Back exam: Present: normal inspection - Neurological Exam Neurological exam: Present: altered, other (no apparent focal deficits) - Psychiatric Psychiatric exam: Present: agitated - Skin Skin exam: Present: warm, dry, intact, normal color. Absent: rash ED Course Vital Signs 06/10/17 15:17 Temperature 97.8 F Pulse Rate 73 Respiratory 18 Rate Blood Pressure 122/77 O2 Sat by Pulse 98 Oximetry - Reevaluation(s) Reevaluation #1: Patient remained drowsy but seemed to be regaining his mental status appropriately. He is status post now versed Haldol and Ativan to facilitate his CT exam. He was found to have some rhabdomyolysis. He was given IV fluid. He is referred to the hospitalist service for further care and observation. He was given a gram of Keppra IV. 06/10/17 17:35 ED Medical Decision Making - Lab Data Result diagrams: 06/10/17 14:45 06/10/17 14:45 Laboratory Results - last 24 hr 06/10/17 06/10/17 14:45 14:45 WBC 10.5 RBC 5.18 H Hgb 14.5 Hct 44.6 MCV 86 MCH 28 MCHC 33 RDW 14.4 Plt Count 162 Lymph % (Auto) 15.0 [place] % (Auto) 8.8 H Eos % (Auto) 0.2 Baso % (Auto) 0.4 Lymph # 1.6 [place] # 0.9 H Eos # 0.0 Baso # 0.0 Seg Neutrophils % 75.6 H Seg Neutrophils # 7.9 H Sodium 139 Potassium 4.6 Chloride 98.6 Carbon Dioxide 22 Anion Gap 23 BUN 15 Creatinine 1.5 Estimated GFR > 60 BUN/Creatinine Ratio 10.00 Glucose 134 H Calcium 9.5 Magnesium 2.70 H Total Bilirubin 0.30 Direct Bilirubin < 0.2 AST 31 ALT 17 Alkaline Phosphatase 44 Total Creatine Kinase 1239 H CK-MB (CK-2) 5.3 H CK-MB (CK-2) Rel Index 0.4 Total Protein 7.7 Albumin 4.7 Albumin/Globulin Ratio 1.6 Critical care attestation.: If time is entered above; I have spent that time in minutes in the direct care of this critically ill patient, excluding procedure time. ED Disposition Clinical Impression: Recurrent seizures, Rhabdomyolysis Disposition: OP ADMIT IP TO THIS HOSP Is pt being admited?: Yes Does the pt Need Aspirin: No Condition: Stable Referrals: PRIMARY CARE, [Primary Care Provider] - 3-5 Days Time of Disposition: 17:38
[2017-06-10] MEDS ORDERED: NACL 0.9% 1000 ML 1,000 ML IV ONE (17:37)
[2017-06-10] MEDS ORDERED: NACL 0.45% 2,000 ML IV SCH (18:00)
[2017-06-10 20:24] VITALS: BP 136/77
[2017-06-10 20:41] LABS: Urine Drugs of Abuse Note Disclamer
[2017-06-10 20:56] LABS: Bilirubin,Urine NEG (Negative); Blood,Urine SM (Negative); Ketones,Urine 20 mg/dL (Negative); Leukocyte Esterase,Urine NEG (Negative); Mucus,Urine FEW /HPF; Nitrite,Urine NEG (Negative); RBC,Urine < 1.0 /HPF (0.0-6.0); Uric Acid Crystals,Urine FEW; Urobilinogen,Urine < 2.0 mg/dL (<2.0)
== END 2017-06-10 22:23 | disposition admitted as inpatient to this hospital (09) ==
LOC: ED 13:59
DX: R56.9 Unspecified convulsions (principal); M62.82 Rhabdomyolysis; F17.200 Nicotine dependence, unspecified, uncomplicated; Z88.0 Allergy status to penicillin
CPT/HCPCS: 36415; 51701; 70450; 80048; 80074; 80307; 81001; 82550; 82553; 83735; 85025; 96360; 99284; J2060; J7030

== ENCOUNTER 2017-07-20 12:25 | Emergency (ER) | payer OTHER ==
[2017-07-20] MEDS ORDERED: KEPPRA 1,000 MG/NS 0.75% 100ML 1,000 MG/100 ML BAG IV ONE (13:54)
[2017-07-20 14:08] VITALS: BP 109/56
[2017-07-20 15:01] LABS: Basophils % (Auto) 0.1 % (0.0-1.8); Hematocrit 42.3 % (35.5-45.6); Hemoglobin 13.5 gm/dl (11.8-15.2); Mean Corpuscular HGB Conc 32 % (32-34); Mean Corpuscular Hemoglobin 27 pg (28-32); Mean Corpuscular Volume 85 fl (84-94); Platelet Count 203 K/mm3 (140-440); Red Blood Count 4.99 M/mm3 (3.65-5.03); Red Cell Distribution Width 14.3 % (13.2-15.2)
[2017-07-20] MEDS ORDERED: KEPPRA PO ONE (15:12)
[2017-07-20 15:24] LABS: Alanine Aminotransferase 13 units/L (7-56); Albumin 4.5 g/dL (3.9-5); Albumin/Globulin Ratio 1.6 %; Alkaline Phosphatase 46 units/L (35-129); Anion Gap 19 mmol/L; BUN/Creatinine Ratio 8; Blood Urea Nitrogen 8 mg/dL (9-20); Carbon Dioxide 21 mmol/L (22-30); Chloride 105.9 mmol/L (98-107); Glucose 91 mg/dL (75-100); Potassium 4.3 mmol/L (3.6-5.0); Sodium 142 mmol/L (137-145); Total Protein 7.3 g/dL (6.3-8.2)
--- NOTE | 2017-07-20 17:01 | Emergency Department Report ---
ED General Adult HPI - General Chief complaint: Seizure Stated complaint: SEIZURE Time Seen by Provider: 07/20/17 13:52 Source: EMS Mode of arrival: Stretcher Limitations: Altered Mental Status - History of Present Illness Initial comments: According to the available history from assisted, the patient has been tensing up. He's had 2 similar such episodes. He was not found to be post ictal or having tonic clonic movements. I am told that he had one such episode upon getting and another today. He was given 2 mg of Ativan. Paramedics arrived and did not find the patient to be seizing or postictal. He arrived awake here for further evaluation. Patient has a history of seizure disorder. He has been previously prescribed Tegretol and Keppra. - Related Data Previous Rx's Medication Instructions Recorded Last Taken Type carBAMazepine [TEGretol] 200 mg PO TID #60 tablet 05/08/17 06/07/17 Rx levETIRAcetam [Keppra TAB] 500 mg PO DAILY #60 tablet 05/08/17 06/07/17 Rx levETIRAcetam [Keppra TAB] 500 mg PO DAILY #30 tablet 06/10/17 Unknown Rx carBAMazepine [TEGretol] 200 mg PO TID #90 tablet 07/20/17 Unknown Rx levETIRAcetam [Keppra] 500 mg PO BID #60 tablet 07/20/17 Unknown Rx Allergies Allergy/AdvReac Type Severity Reaction Status Date / Time Penicillins Allergy Rash Verified 04/14/17 15:46 ED Review of Systems ROS: Stated complaint: SEIZURE Other details as noted in HPI ED Past Medical Hx - Past Medical History Hx Congestive Heart Failure: No Hx Diabetes: No Hx Seizures: Yes Hx Asthma: No Hx COPD: No Hx HIV: No Additional medical history: closed head injury 2003 - Surgical History Additional Surgical History: left hand surgery. left leg surgery- steel rafael - Social History Smoking Status: Unknown if ever smoked - Medications Home Medications: Home Medications Medication Instructions Recorded Confirmed Last Taken Type carBAMazepine [TEGretol] 200 mg PO TID #60 tablet 05/08/17 06/10/17 06/07/17 Rx levETIRAcetam [Keppra TAB] 500 mg PO DAILY #60 tablet 05/08/17 06/10/17 Rx levETIRAcetam [Keppra TAB] 500 mg PO DAILY #30 tablet 06/10/17 Unknown Rx carBAMazepine [TEGretol] 200 mg PO TID #90 tablet 07/20/17 Unknown Rx levETIRAcetam [Keppra] 500 mg PO BID #60 tablet 07/20/17 Unknown Rx ED Physical Exam - General Limitations: Altered Mental Status ED Course Vital Signs 07/20/17 14:07 Temperature 98.4 F Pulse Rate 64 Respiratory 16 Rate Blood Pressure 109/56 [Right] O2 Sat by Pulse 100 Oximetry - Reevaluation(s) Reevaluation #1: Lab was unable to successfully get a blood sample. Performed a radial stick which was immediately successful and well tolerated. The patient was observed in the emergency department for several hours. He had no further seizure activity. He was given by mouth Keppra. 07/20/17 17:03 ED Medical Decision Making - Lab Data Result diagrams: 07/20/17 12:47 07/20/17 12:47 Laboratory Results - last 24 hr 07/20/17 07/20/17 07/20/17 12:47 12:47 14:35 WBC 12.0 H RBC 4.99 Hgb 13.5 Hct 42.3 MCV 85 MCH 27 L MCHC 32 RDW 14.3 Plt Count 203 Lymph % (Auto) 7.6 L [place] % (Auto) 6.4 Eos % (Auto) 0.0 Baso % (Auto) 0.1 Lymph # 0.9 L [place] # 0.8 Eos # 0.0 Baso # 0.0 Seg Neutrophils % 85.9 H Seg Neutrophils # 10.3 H Sodium 142 Potassium 4.3 Chloride 105.9 Carbon Dioxide 21 L Anion Gap 19 BUN 8 L Creatinine 1.0 Estimated GFR > 60 BUN/Creatinine Ratio 8 Glucose 91 POC Glucose 65 L Calcium 9.0 Total Bilirubin 0.20 AST 22 ALT 13 Alkaline Phosphatase 46 Total Protein 7.3 Albumin 4.5 Albumin/Globulin Ratio 1.6 07/20/17 15:22 WBC RBC Hgb Hct MCV MCH MCHC RDW Plt Count Lymph % (Auto) [place] % (Auto) Eos % (Auto) Baso % (Auto) Lymph # [place] # Eos # Baso # Seg Neutrophils % Seg Neutrophils # Sodium Potassium Chloride Carbon Dioxide Anion Gap BUN Creatinine Estimated GFR BUN/Creatinine Ratio Glucose POC Glucose 113 H Calcium Total Bilirubin AST ALT Alkaline Phosphatase Total Protein Albumin Albumin/Globulin Ratio Critical care attestation.: If time is entered above; I have spent that time in minutes in the direct care of this critically ill patient, excluding procedure time. ED Disposition Clinical Impression: Seizure disorder, Agitation Disposition: DC-01 TO HOME OR SELFCARE Is pt being admited?: No Does the pt Need Aspirin: No Condition: Stable Instructions: Recurrent Seizures Adult (ED) Additional Instructions: Continue the patient on his chronic seizure medicine. Return as needed any acute change or problems. Prescriptions: carBAMazepine [TEGretol] 200 mg PO TID #90 tablet levETIRAcetam [Keppra] 500 mg PO BID #60 tablet Referrals: PRIMARY CARE, [Primary Care Provider] - 3-5 Days Time of Disposition: 17:11
== END 2017-07-20 17:35 | disposition home or self-care (01) ==
LOC: EEVIPCON 12:25 → ED 12:25
DX: G40.909 Epilepsy, unspecified, not intractable, without status epilepticus (principal); R45.1 Restlessness and agitation; Z88.0 Allergy status to penicillin
CPT/HCPCS: 36415; 80053; 80156; 80177; 82962; 85025; 93005; 93010; 99284

== ENCOUNTER 2017-08-19 15:23 | Inpatient (IN) | payer OTHER ==
[2017-08-19] MEDS ORDERED: KEPPRA 1,000 MG/NS 0.75% 100ML 1,000 MG/100 ML BAG IV ONE ×3 (16:22→19:51)
[2017-08-19] MEDS ORDERED: ATIVAN IV ONE ×2 (16:22→18:51)
--- NOTE | 2017-08-19 16:27 | Emergency Department Report ---
HPI - General Chief Complaint: Seizure Time Seen by Provider: 08/19/17 16:18 - HPI HPI: Room 2 The patient is a 32-year-old male presenting with a chief complaint seizure. Patient reports he had 2 seizures today. Patient states he takes Keppra and Tegretol control his seizures. Patient denies any complaints except for feeling thirsty Location: [facility] Duration: Unknown Quality: Generalized tonic-clonic Severity: Unknown Modifying factors: [see above] Context: [see above] Mode of transportation: [not driving] ED Past Medical Hx - Past Medical History Hx Seizures: Yes Additional medical history: closed head injury 2003 - Surgical History Additional Surgical History: left hand surgery. left leg surgery- steel rafael - Family History Family history: no significant - Social History Smoking Status: Unknown if ever smoked Substance Use Type: None - Medications Home Medications: Home Medications Medication Instructions Recorded Confirmed Last Taken Type carBAMazepine [TEGretol] 200 mg PO TID #60 tablet 05/08/17 06/10/17 06/07/17 Rx levETIRAcetam [Keppra TAB] 500 mg PO DAILY #60 tablet 05/08/17 06/10/17 Rx levETIRAcetam [Keppra TAB] 500 mg PO DAILY #30 tablet 06/10/17 Unknown Rx carBAMazepine [TEGretol] 200 mg PO TID #90 tablet 07/20/17 Unknown Rx levETIRAcetam [Keppra] 500 mg PO BID #60 tablet 07/20/17 Unknown Rx levETIRAcetam [Keppra TAB] 500 mg PO BID #90 tablet 08/19/17 Unknown Rx ED Review of Systems ROS: Stated complaint: AMS Other details as noted in HPI Constitutional: no symptoms reported Gastrointestinal: other (thirsty) Neurological: other (seizure) Physical Exam - Physical Exam Vital Signs: Vital Signs 08/19/17 16:00 Respiratory 16 Rate Physical Exam: GENERAL: The patient is well-developed well-nourished male lying on stretcher not appearing to be in acute distress. [] HEENT: Normocephalic. Atraumatic. Extraocular motions are intact. Patient has moist mucous membranes. NECK: Supple. Trachea midline CHEST/LUNGS: Clear to auscultation. There is no respiratory distress noted. HEART/CARDIOVASCULAR: Regular. There is no tachycardia. There is no gallop rub or murmur. ABDOMEN: Abdomen is soft, nontender. Patient has normal bowel sounds. There is no abdominal distention. SKIN: There is no rash. There is no diaphoresis. NEURO: The patient is awake, alert, and oriented. The patient is cooperative. The patient has normal speech MUSCULOSKELETAL: There is no evidence of acute injury. ED Course Vital Signs 08/19/17 16:00 Respiratory 16 Rate - Reevaluation(s) Reevaluation #1: 08/19/17 17:28 Patient refusing labs and medications. Patient denies complaints. Patient answering questions appropriately. Patient requested water ED Medical Decision Making - Differential Diagnosis epilepsy Critical care attestation.: If time is entered above; I have spent that time in minutes in the direct care of this critically ill patient, excluding procedure time. ED Disposition Clinical Impression: Seizure Disposition: DC-01 TO HOME OR SELFCARE Is pt being admited?: No Does the pt Need Aspirin: No Condition: Stable Instructions: Epilepsy (ED) Additional Instructions: Return to the emergency department immediately should you develop worsening symptoms, fever, inability to tolerate food or liquid or any other concerns. Prescriptions: levETIRAcetam [Keppra TAB] 500 mg PO BID #90 tablet Referrals: MIKHAIL SOLANO MD [Staff Physician] - 3-5 Days [facility] [Outside] - 3-5 Days Time of Disposition: 17:29 (discharge to family)
[2017-08-19] MEDS ORDERED: KEPPRA PO ONE (16:46)
[2017-08-19] MEDS ORDERED: HALDOL ONE (18:47)
[2017-08-19] MEDS ORDERED: TYLENOL PO ONE (18:48)
[2017-08-19] MEDS ORDERED: HALDOL IM ONE (18:50)
[2017-08-19 20:19] LABS: Anion Gap 34 mmol/L; BUN/Creatinine Ratio 9; Blood Urea Nitrogen 14 mg/dL (9-20); Calcium 9.7 mg/dL (8.4-10.2); Carbon Dioxide 14 mmol/L (22-30); Chloride 99.5 mmol/L (98-107); Glucose 113 mg/dL (75-100); Potassium 4.3 mmol/L (3.6-5.0); Sodium 143 mmol/L (137-145)
[2017-08-19] MEDS ORDERED: NACL 0.9% 1000 ML 1,000 ML IV ONE (20:50)
[2017-08-19] MEDS ORDERED: ZOFRAN IV PRN (22:05)
[2017-08-19] MEDS ORDERED: ATIVAN IV PRN (22:05)
[2017-08-19] MEDS ORDERED: DULCOLAX PR PRN (22:05)
[2017-08-19] MEDS ORDERED: MILK OF MAGNESIA PO PRN (22:05)
[2017-08-19] MEDS ORDERED: TYLENOL PO PRN (22:05)
--- NOTE | 2017-08-19 22:07 | History and Physical Report ---
History of Present Illness Date of examination: 08/19/17 History of present illness: 32-year-old man with a history of seizure was brought to the emergency room because he had a seizure. Girlfriend states she was being discharged from the hospital, she called him, he was not making much sense and she knew that he had a seizure. Details of the seizure at home are unknown. She called 911 and the patient was brought to the emergency room for evaluation. He was treated and sent for discharge when he had another seizure, grand mal. Patient became agitated, given IV Keppra, Ativan, now post ictal. A review of systems unobtainable PAST MEDICAL HISTORY:seizure PAST SURGICAL HISTORY: Leg surgery FAMILY HISTORY: Hypertension SOCIAL HISTORY: Smokes half pack a day, no alcohol or drugs Medications and Allergies Allergies Allergy/AdvReac Type Severity Reaction Status Date / Time Penicillins Allergy Rash Verified 04/14/17 15:46 Home Medications Medication Instructions Recorded Confirmed Last Taken Type carBAMazepine [TEGretol] 200 mg PO TID #90 tablet 07/20/17 08/19/17 Unknown Rx levETIRAcetam [Keppra] 500 mg PO BID #60 tablet 07/20/17 08/19/17 Unknown Rx Exam - Physical Exam Narrative exam: Gen. appearance: Patient lying in bed in no acute distress HEENT: Normocephalic/atraumatic, pupils equal round reactive to light, unable to do extra ocular movement intact, no scleral icterus, no JVD or thyromegaly or nodule, neck is supple, mucous membrane moist, no erythema or exudate Heart: S1-S2, regular rate and rhythm Lungs: Clear to auscultation bilateral breathing comfortable Abdomen: Positive bowel sounds, nontender, nondistended, no organomegaly Extremities: No edema, cyanosis, clubbing Neuro:: Sedated Skin: No rash, nodules, warm dry - Constitutional Vitals: Temp Pulse Resp BP Pulse Ox 97.6 F 74 16 126/54 95 08/19/17 16:26 08/19/17 22:04 08/19/17 22:04 08/19/17 22:04 08/19/17 22:04 Results - Labs CBC & Chem 7: 08/19/17 19:51 Labs: Abnormal lab results 08/19/17 08/19/17 08/19/17 Range/Units 19:51 19:51 20:51 Carbon Dioxide 14 L (22-30) mmol/L Creatinine 1.6 H (0.8-1.5) mg/dL Glucose 113 H (75-100) mg/dL Magnesium 2.80 H (1.7-2.3) mg/dL Total Creatine Kinase 1697 H (55-170) units/L Carbamazepine 2.0 L (4-12) ug/mL Assessment and Plan Assessment Acute on chronic seizure Acute rhabdomyolysis secondary to #1 Acute renal failure Plan Admit to medicine Start IV Ativan as needed for seizure, outpatient medication Aggressive IV fluids, DVT prophylaxis Check CT head
[2017-08-20] MEDS: NACL 0.9% 1000 ML 1,000 ML IV SCH ×2 (00:10→06:19)
[2017-08-20 05:38] LABS: Basophils % (Auto) 0.7 % (0.0-1.8); Hematocrit 39.6 % (35.5-45.6); Hemoglobin 13.4 gm/dl (11.8-15.2); Mean Corpuscular HGB Conc 34 % (32-34); Mean Corpuscular Hemoglobin 29 pg (28-32); Mean Corpuscular Volume 85 fl (84-94); Platelet Count 170 K/mm3 (140-440); Red Blood Count 4.65 M/mm3 (3.65-5.03); Red Cell Distribution Width 15.9 % (13.2-15.2); White Blood Count 14.3 K/mm3 (4.5-11.0)
[2017-08-20 05:53] LABS: Anion Gap 20 mmol/L; BUN/Creatinine Ratio 12; Blood Urea Nitrogen 15 mg/dL (9-20); Calcium 8.9 mg/dL (8.4-10.2); Carbon Dioxide 20 mmol/L (22-30); Chloride 105.3 mmol/L (98-107); Glucose 99 mg/dL (75-100); Potassium 4.7 mmol/L (3.6-5.0); Sodium 141 mmol/L (137-145)
[2017-08-20 08:52] VITALS: BP 108/57
[2017-08-20] MEDS ORDERED: LOVENOX SUB-Q SCH ×2 (10:00)
--- NOTE | 2017-08-20 13:56 | Discharge Summary ---
Providers - Providers Date of Admission: 08/19/17 22:05 Date of discharge: 08/20/17 Attending physician: JR JOHNSON none Primary care physician: J2EE PROGRAMMER Hospitalization Reason for admission: Recurretn seizure Condition: Stable Pertinent studies: none Procedures: none Hospital course: 32-year-old man with a history of seizure was brought to the emergency room because he had a seizure. Girlfriend states she was being discharged from the hospital, she called him, he was not making much sense and she knew that he had a seizure. Details of the seizure at home are unknown. She called 911 and the patient was brought to the emergency room for evaluation. He was treated and sent for discharge when he had another seizure, grand mal. Patient became agitated. IV Keppra, Ativan given and admitted. Found to have rhabdomyelysis. commence on IVF. Total CK increased fom 1800 to 3300. Pt advise to continue with iv hydration but declined an signed AMA despite advise to the contrary and the explanantion of the risk of renal failure and . He stated that may come back to the ER tonight if he has to. Disposition: DC-07 LEFT AGAINST MED ADVICE Core Measure Documentation - Palliative Care Palliative Care/ Comfort Measures: Not Applicable - Core Measures Any of the following diagnoses?: none Exam - Constitutional Vitals: Temp Pulse Resp BP Pulse Ox 98.4 F 102 H 18 108/57 100 08/20/17 07:47 08/20/17 07:47 08/20/17 07:47 08/20/17 07:47 08/20/17 07:47 General appearance: Present: no acute distress, well-nourished - EENT Eyes: Present: PERRL - Neck Neck: Present: supple, normal ROM - Respiratory Respiratory effort: normal Respiratory: bilateral: CTA - Cardiovascular Heart Sounds: Present: S1 & S2. Absent: rub, click - Extremities Extremities: pulses symmetrical, No edema Peripheral Pulses: within normal limits - Abdominal General gastrointestinal: Present: soft, non-tender, non-distended, normal bowel sounds Male genitourinary: Present: normal - Integumentary Integumentary: Present: clear, warm, dry - Musculoskeletal Musculoskeletal: gait normal, strength equal bilaterally - Psychiatric Psychiatric: appropriate mood/affect, intact judgment & insight - Neurologic Neurologic: CNII-XII intact, moves all extremities Plan Activity: advance as tolerated Weight Bearing Status: Weight Bear as Tolerated Diet: regular Follow up with: [facility] [Outside] - 3-5 Days MIKHAIL SOLANO MD [Staff Physician] - 3-5 Days
== END 2017-08-20 14:00 | disposition left against medical advice (07) | DRG 101 ==
LOC: ED 15:23 → 3A 22:05
PROVIDERS: ADMIT Internal Medicine; ATTEND Internal Medicine
DX: G40.409 Other generalized epilepsy and epileptic syndromes, not intractable, without status epilepticus (principal); M62.82 Rhabdomyolysis; N17.9 Acute kidney failure, unspecified; Z88.0 Allergy status to penicillin; Z82.49 Family history of ischemic heart disease and other diseases of the circulatory system; F17.200 Nicotine dependence, unspecified, uncomplicated
CPT/HCPCS: 36415; 80048; 80156; 82550; 83735; 85025; 96361; 96372; 96374; 96375; J1630; J1650; J1953; J2060; J7030

== ENCOUNTER 2017-08-25 08:29 | Emergency (ER) | payer SELFPAY ==
[2017-08-25 10:39] LABS: Alanine Aminotransferase 36 units/L (7-56); Albumin 4.2 g/dL (3.9-5); Albumin/Globulin Ratio 1.4 %; Alkaline Phosphatase 40 units/L (35-129); Anion Gap 15 mmol/L; BUN/Creatinine Ratio 9; Blood Urea Nitrogen 9 mg/dL (9-20); Carbon Dioxide 29 mmol/L (22-30); Chloride 100.6 mmol/L (98-107); Glucose 94 mg/dL (75-100); Sodium 141 mmol/L (137-145); Total Protein 7.3 g/dL (6.3-8.2)
[2017-08-25 10:42] LABS: Basophils % (Auto) 0.4 % (0.0-1.8); Eosinophils % (Auto) 1.3 % (0.0-4.3); Hematocrit 42.1 % (35.5-45.6); Hemoglobin 13.8 gm/dl (11.8-15.2); Mean Corpuscular HGB Conc 33 % (32-34); Mean Corpuscular Hemoglobin 29 pg (28-32); Mean Corpuscular Volume 87 fl (84-94); Platelet Count 178 K/mm3 (140-440); Red Blood Count 4.83 M/mm3 (3.65-5.03); Red Cell Distribution Width 15.8 % (13.2-15.2); White Blood Count 5.3 K/mm3 (4.5-11.0)
[2017-08-25 11:25] LABS: Urine Drugs of Abuse Note Disclamer
[2017-08-25 11:49] LABS: Bilirubin,Urine NEG (Negative); Blood,Urine NEG (Negative); Ketones,Urine NEG (Negative); Leukocyte Esterase,Urine NEG (Negative); Mucus,Urine 2+ /HPF; Nitrite,Urine NEG (Negative); Protein,Urine <15 mg/dL mg/dL (Negative); Urobilinogen,Urine < 2.0 mg/dL (<2.0)
--- NOTE | 2017-08-25 11:58 | Emergency Department Report ---
ED General Adult HPI - General Chief complaint: Altered Mental Status Stated complaint: SEIZURE Time Seen by Provider: 08/25/17 11:46 Source: patient, family, RN notes reviewed, old records reviewed Mode of arrival: Ambulatory Limitations: No Limitations - History of Present Illness Initial comments: This is a 32-year-old male who was previously known to this provider. Past medical history includes seizure disorder, noncompliance, breakthrough seizures. Medications include Keppra, 500 mg twice daily, and carbamazepine, 200 mg 3 times daily, as per recent discharge prescriptions. Patient recently admitted to the hospital for seizure, was found to have myositis and borderline rhabdomyolysis, and signed out AGAINST MEDICAL ADVICE. The patient presents to the ER today to have his creatinine kinase levels checked. He has no headache, neck pain, chest pain, abdominal pain, shortness of breath. Patient complains of left leg pain for 2 years. Contrary to what is documented in the triage note, patient indicates that the leg pain has been 2 years. It is not new, worse or different. It does not radiate anywhere. It is achy in nature. It has no exacerbating or relieving factors. Patient's indicates that the patient seemed confused this morning. Patient has some recollection of this. Patient denies toxic ingestions. His indicates that the patient is back to his normal baseline. He indicates no trauma. Patient's indicates that the patient was "not making any sense. " -: year(s) Location: left, lower extremity Radiation: non-radiation Severity scale (0 -10): 0 Quality: aching Consistency: intermittent Improves with: none Worsens with: none Associated Symptoms: denies: confusion, chest pain, cough, diaphoresis, fever/ chills, headaches, loss of appetite, malaise, nausea/vomiting, rash, shortness of breath, syncope, weakness - Related Data Previous Rx's Medication Instructions Recorded Last Taken Type carBAMazepine [TEGretol] 200 mg PO TID #90 tablet 07/20/17 Unknown Rx levETIRAcetam [Keppra] 500 mg PO BID #60 tablet 07/20/17 Unknown Rx Allergies Allergy/AdvReac Type Severity Reaction Status Date / Time Penicillins Allergy Rash Verified 04/14/17 15:46 ED Review of Systems ROS: Stated complaint: SEIZURE Other details as noted in HPI ED Past Medical Hx - Past Medical History Previous Medical History?: Yes Hx Congestive Heart Failure: No Hx Diabetes: No Hx Seizures: Yes (Grand Mal) Hx Asthma: No Hx COPD: No Hx HIV: No Additional medical history: closed head injury 2003 - Surgical History Past Surgical History?: Yes Additional Surgical History: left hand surgery. left leg surgery- steel rafael - Social History Smoking Status: Current Every Day Smoker Substance Use Type: None - Medications Home Medications: Home Medications Medication Instructions Recorded Confirmed Last Taken Type carBAMazepine [TEGretol] 200 mg PO TID #90 tablet 07/20/17 08/19/17 Unknown Rx levETIRAcetam [Keppra] 500 mg PO BID #60 tablet 07/20/17 08/19/17 Unknown Rx ED Physical Exam - General Limitations: No Limitations General appearance: alert, in no apparent distress - Head Head exam: Present: atraumatic, normocephalic - Eye Eye exam: Present: normal appearance, PERRL, EOMI, other (visual acuity intact to finger counting, color perception, reading at a close distance). Absent: nystagmus - ENT ENT exam: Present: normal exam, normal orophraynx, mucous membranes moist - Neck Neck exam: Present: normal inspection, full ROM - Respiratory Respiratory exam: Present: normal lung sounds bilaterally. Absent: respiratory distress - Cardiovascular Cardiovascular Exam: Present: regular rate, normal rhythm, normal heart sounds. Absent: systolic murmur, diastolic murmur, rubs, gallop - GI/Abdominal GI/Abdominal exam: Present: soft, normal bowel sounds. Absent: distended, tenderness, guarding, rebound, rigid - Rectal Rectal exam: Present: deferred - Extremities Exam Extremities exam: Present: full ROM, normal capillary refill, other (there is no redness, pus or streaking. There is no palpable pole cord. There is negative Homans sign. Old scar tissue noted in the left lower extremity. The compartments are soft. 2+ pulses noted in the bilateral upper and lower extremities.). Absent: tenderness, pedal edema, joint swelling, calf tenderness - Back Exam Back exam: Present: normal inspection, full ROM. Absent: tenderness, CVA tenderness (R), paraspinal tenderness, vertebral tenderness - Neurological Exam Neurological exam: Present: alert, oriented X3, CN II-XII intact, normal gait, other (Extraocular movements intact. Tongue midline. No facial droop. Facial sensation intact to light touch in the V1, V2, V3 distribution bilaterally. 5 and 5 strength in 4 extremities.. Sensation is intact to light touch in 4 extremities.). Absent: motor sensory deficit - Psychiatric Psychiatric exam: Present: normal affect, normal mood. Absent: homicidal ideation, suicidal ideation - Skin Skin exam: Present: warm, dry, intact, normal color. Absent: rash ED Course Vital Signs 08/25/17 08/25/17 08/25/17 09:11 09:53 09:58 Temperature 98.4 F Pulse Rate 89 Respiratory 18 21 18 Rate Blood Pressure 136/73 Blood Pressure [Right] O2 Sat by Pulse 98 99 Oximetry 08/25/17 08/25/17 08/25/17 10:00 10:30 11:00 Temperature Pulse Rate 89 75 74 Respiratory 12 17 22 Rate Blood Pressure 125/79 135/80 123/73 Blood Pressure [Right] O2 Sat by Pulse 98 100 99 Oximetry 08/25/17 08/25/17 08/25/17 11:30 13:06 13:17 Temperature Pulse Rate 76 78 Respiratory 15 16 Rate Blood Pressure 117/44 119/69 Blood Pressure 118/71 [Right] O2 Sat by Pulse 99 99 100 Oximetry 08/25/17 13:30 Temperature Pulse Rate Respiratory Rate Blood Pressure 114/64 Blood Pressure [Right] O2 Sat by Pulse 100 Oximetry - Reevaluation(s) Reevaluation #1: 08/25/17 12:06 Differential diagnosis, including but not limited to: Breakthrough seizure, myositis, urinary tract infection, intracranial injury/hemorrhage, conversion disorder, general medical evaluation, transient global amnesia, partial seizure Assessment and plan: 32-year-old male whose indicates that this morning he had an episode of altered mental status, which she further clarifies as the patient's seeming to be globally confused, with no report of weakness, numbness , ataxia, or slurred speech. . The patient is a and O 3, clinically sober, walks with a steady gait, has a GCS of 15, with an NIH score of 0, and has no complaints at this time with the exception of chronic left leg pain. Laboratory studies not consistent with rhabdomyolysis. ABCD 2 score of 0, given clinical history, think transient ischemic attack very unlikely. Serum toxicology screen pending, urinalysis unremarkable, noncontrast CT scan of the brain is pending, we will reassess. Partial seizures are more likely diagnosis versus postictal state Reevaluation #2: 08/25/17 14:05 CT scan of the brain is negative. Vital signs remained stable. Patient clinically sober at this time. Patient will be discharged. Return precautions are reviewed. ED Medical Decision Making - Lab Data Result diagrams: 08/25/17 09:55 08/25/17 09:55 Vital Signs 08/25/17 08/25/17 08/25/17 09:11 09:53 09:58 Temperature 98.4 F Pulse Rate 89 Respiratory 18 21 18 Rate Blood Pressure 136/73 O2 Sat by Pulse 98 99 Oximetry 08/25/17 08/25/17 08/25/17 10:00 10:30 11:00 Temperature Pulse Rate 89 75 74 Respiratory 12 17 22 Rate Blood Pressure 125/79 135/80 123/73 O2 Sat by Pulse 98 100 99 Oximetry 08/25/17 11:30 Temperature Pulse Rate 76 Respiratory 15 Rate Blood Pressure 117/44 O2 Sat by Pulse 99 Oximetry Lab Results 08/25/17 08/25/17 08/25/17 Range/Units 09:55 09:55 09:55 WBC 5.3 (4.5-11.0) K/mm3 RBC 4.83 (3.65-5.03) M/mm3 Hgb 13.8 (11.8-15.2) gm/dl Hct 42.1 (35.5-45.6) % MCV 87 (84-94) fl MCH 29 (28-32) pg MCHC 33 (32-34) % RDW 15.8 H (13.2-15.2) % Plt Count 178 (140-440) K/mm3 Lymph % (Auto) 28.8 (13.4-35.0) % [place] % (Auto) 8.1 H (0.0-7.3) % Eos % (Auto) 1.3 (0.0-4.3) % Baso % (Auto) 0.4 (0.0-1.8) % Lymph # 1.5 (1.2-5.4) K/mm3 [place] # 0.4 (0.0-0.8) K/mm3 Eos # 0.1 (0.0-0.4) K/mm3 Baso # 0.0 (0.0-0.1) K/mm3 Seg Neutrophils % 61.4 (40.0-70.0) % Seg Neutrophils # 3.2 (1.8-7.7) K/mm3 Sodium 141 (137-145) mmol/L Potassium 4.0 (3.6-5.0) mmol/L Chloride 100.6 (98-107) mmol/L Carbon Dioxide 29 (22-30) mmol/L Anion Gap 15 mmol/L BUN 9 (9-20) mg/dL Creatinine 1.0 (0.8-1.5) mg/dL Estimated GFR > 60 ml/min BUN/Creatinine Ratio 9 % Glucose 94 (75-100) mg/dL Lactic Acid 1.20 (0.7-2.0) mmol/L Calcium 9.0 (8.4-10.2) mg/dL Magnesium 1.70 (1.7-2.3) mg/dL Total Bilirubin 0.20 (0.1-1.2) mg/dL AST 19 (5-40) units/L ALT 36 (7-56) units/L Alkaline Phosphatase 40 (35-129) units/L Total Creatine Kinase (55-170) units/L Total Protein 7.3 (6.3-8.2) g/dL Albumin 4.2 (3.9-5) g/dL Albumin/Globulin Ratio 1.4 % TSH (0.270-4.200) mlU/mL Urine Color (Yellow) Urine Turbidity (Clear) Urine pH (5.0-7.0) Ur Specific [place] (1.003-1.030) Urine Protein (Negative) mg/dL Urine Glucose (UA) (Negative) mg/dL Urine Ketones (Negative) mg/dL Urine Blood (Negative) Urine Nitrite (Negative) Urine Bilirubin (Negative) Urine Urobilinogen (<2.0) mg/dL Ur Leukocyte Esterase (Negative) Urine WBC (Auto) (0.0-6.0) /HPF Urine RBC (Auto) (0.0-6.0) /HPF Urine Mucus /HPF 08/25/17 08/25/17 08/25/17 Range/Units 09:55 09:55 10:53 WBC (4.5-11.0) K/mm3 RBC (3.65-5.03) M/mm3 Hgb (11.8-15.2) gm/dl Hct (35.5-45.6) % MCV (84-94) fl MCH (28-32) pg MCHC (32-34) % RDW (13.2-15.2) % Plt Count (140-440) K/mm3 Lymph % (Auto) (13.4-35.0) % [place] % (Auto) (0.0-7.3) % Eos % (Auto) (0.0-4.3) % Baso % (Auto) (0.0-1.8) % Lymph # (1.2-5.4) K/mm3 [place] # (0.0-0.8) K/mm3 Eos # (0.0-0.4) K/mm3 Baso # (0.0-0.1) K/mm3 Seg Neutrophils % (40.0-70.0) % Seg Neutrophils # (1.8-7.7) K/mm3 Sodium (137-145) mmol/L Potassium (3.6-5.0) mmol/L Chloride (98-107) mmol/L Carbon Dioxide (22-30) mmol/L Anion Gap mmol/L BUN (9-20) mg/dL Creatinine (0.8-1.5) mg/dL Estimated GFR ml/min BUN/Creatinine Ratio % Glucose (75-100) mg/dL Lactic Acid (0.7-2.0) mmol/L Calcium (8.4-10.2) mg/dL Magnesium (1.7-2.3) mg/dL Total Bilirubin (0.1-1.2) mg/dL AST (5-40) units/L ALT (7-56) units/L Alkaline Phosphatase (35-129) units/L Total Creatine Kinase 472 H (55-170) units/L Total Protein (6.3-8.2) g/dL Albumin (3.9-5) g/dL Albumin/Globulin Ratio % TSH 0.405 (0.270-4.200) mlU/mL Urine Color Yellow (Yellow) Urine Turbidity Clear (Clear) Urine pH 5.0 (5.0-7.0) Ur Specific [place] 1.019 (1.003-1.030) Urine Protein <15 mg/dl (Negative) mg/dL Urine Glucose (UA) Neg (Negative) mg/dL Urine Ketones Neg (Negative) mg/dL Urine Blood Neg (Negative) Urine Nitrite Neg (Negative) Urine Bilirubin Neg (Negative) Urine Urobilinogen < 2.0 (<2.0) mg/dL Ur Leukocyte Esterase Neg (Negative) Urine WBC (Auto) 2.0 (0.0-6.0) /HPF Urine RBC (Auto) 1.0 (0.0-6.0) /HPF Urine Mucus 2+ /HPF - EKG Data 08/25/17 12:08 Normal sinus, 76 bpm, normal axis, normal intervals, unremarkable EKG, not morphologically consistent with ST elevation myocardial infarction, she is not having chest pain. - Radiology Data Radiology results: report reviewed, image reviewed Noncontrast CT scan of the brain is negative. Critical care attestation.: If time is entered above; I have spent that time in minutes in the direct care of this critically ill patient, excluding procedure time. ED Disposition Clinical Impression: History of seizure Disposition: DC-01 TO HOME OR SELFCARE Is pt being admited?: No Does the pt Need Aspirin: No Condition: Stable Additional Instructions: Continue current outpatient medications. Do not drive motor vehicles or operate motor vehicles for the next 6 months. Avoid consumption of alcohol and sedating medications. Follow up with the primary care doctor or neurologist within the next 2 weeks. Return to the ER right away with chest pain, shortness of breath, confusion, intractable nausea or vomiting, recurrent seizures, inability to tolerate liquid feeds, weakness, numbness. If the patient is consuming cannabis, marijuana, or illegal drugs, discontinue consumption, as these will increase symptoms. Referrals: PRIMARY CARE, [Primary Care Provider] - 3-5 Days MIKHAIL SOLANO MD [Staff Physician] - 3-5 Days DEB AMEZQUITA MD [Staff Physician] - 3-5 Days
[2017-08-25 13:59] VITALS: BP 114/64
--- NOTE | 2017-08-25 15:08 | Cat Scan Report ---
FINAL REPORT PROCEDURE: CT HEAD/BRAIN WO CON TECHNIQUE: Computerized tomography of the head was performed without contrast material. HISTORY: resolved ams COMPARISON: Noncontrast head CT 04/23/2017 FINDINGS: Brain volume is age appropriate. There is no intra or extra-axial hemorrhage. There is no CT evident acute infarction. There is no mass effect. There is no gross mass lesion or leptomeningeal abnormality given limitation of lack of IV contrast. The skull base and calvarium are intact. Subtle chronic left maxillary sinusitis is present.. IMPRESSION: No CT evident acute intracranial process. Subtle chronic left maxillary sinusitis.
== END 2017-08-25 14:21 | disposition home or self-care (01) ==
LOC: ED 08:29
DX: R56.9 Unspecified convulsions (principal); F17.200 Nicotine dependence, unspecified, uncomplicated; Z88.0 Allergy status to penicillin
CPT/HCPCS: 36415; 70450; 80053; 80307; 81001; 82140; 82550; 82962; 83735; 84443; 85025; 93005; 93010; 99285; G0480; 80320

== ENCOUNTER 2017-10-13 09:53 | Emergency (ER) | payer SELFPAY ==
--- NOTE | 2017-10-13 10:17 | Emergency Department Report ---
ED Seizure HPI - General Stated Complaint: SEIZURE Time Seen by Provider: 10/13/17 10:11 Source: EMS - History of Present Illness Initial Comments: Patient is a 32-year-old Male with past history of seizures who is presenting postictal at this time from a tonic-clonic seizure. Patient is being brought by EMS they state that they noticed tonic-clonic seizure activity when they arrived is unknown the circumstances of this seizure before EMS arrival. EMS gave the patient 10 mg of Versed which did stop seizure activity. Patient is lethargic and postictal and is unable to give any history at this time MD Complaint: seizure -: This morning Description of Episode: loss of consciousness, tonic-clonic movement Witnessed:: Yes Trauma: No Seizure History: known seizure disorder Treatments Prior to Arrival: benzodiazepines (patient was given 10 mg of Versed by paramedics before arrival) - Related Data Previous Rx's Medication Instructions Recorded Last Taken Type carBAMazepine [TEGretol] 200 mg PO TID #90 tablet 08/25/17 Unknown Rx levETIRAcetam [Keppra] 500 mg PO BID #60 tablet 08/25/17 Unknown Rx Allergies Allergy/AdvReac Type Severity Reaction Status Date / Time Penicillins Allergy Rash Verified 04/14/17 15:46 ED Review of Systems ROS: Stated complaint: SEIZURE Other details as noted in HPI Comment: Unobtainable due to pts medical conditions ED Past Medical Hx - Past Medical History Hx Congestive Heart Failure: No Hx Diabetes: No Hx Seizures: Yes (Grand Mal) Hx Asthma: No Hx COPD: No Hx HIV: No Additional medical history: closed head injury 2003 - Surgical History Additional Surgical History: left hand surgery. left leg surgery- steel rafael - Social History Smoking Status: Current Every Day Smoker Substance Use Type: None - Medications Home Medications: Home Medications Medication Instructions Recorded Confirmed Last Taken Type carBAMazepine [TEGretol] 200 mg PO TID #90 tablet 08/25/17 Unknown Rx levETIRAcetam [Keppra] 500 mg PO BID #60 tablet 08/25/17 Unknown Rx ED Physical Exam - General General appearance: lethargic, postictal - Head Head exam: Present: atraumatic, normocephalic - Eye Eye exam: Present: normal appearance - ENT ENT exam: Present: mucous membranes moist - Neck Neck exam: Present: normal inspection - Respiratory Respiratory exam: Present: normal lung sounds bilaterally. Absent: respiratory distress, wheezes, rales, rhonchi, stridor - Cardiovascular Cardiovascular Exam: Present: regular rate, normal rhythm. Absent: systolic murmur, diastolic murmur, rubs, gallop - GI/Abdominal GI/Abdominal exam: Present: soft, normal bowel sounds. Absent: distended, tenderness, guarding, rebound, rigid - Rectal Rectal exam: Present: deferred - Extremities Exam Extremities exam: Present: normal inspection - Back Exam Back exam: Present: normal inspection - Neurological Exam Neurological exam: Present: other (moving all extremities patient will open his eyes to heavy touch) - Psychiatric Psychiatric exam: Present: normal affect, normal mood - Skin Skin exam: Present: warm, dry, intact, normal color. Absent: rash ED Course Vital Signs 10/13/17 10/13/17 10/13/17 10:17 10:18 16:11 Temperature 97.7 F Pulse Rate 80 69 Respiratory 23 23 20 Rate Blood Pressure 126/67 126/67 [Left] O2 Sat by Pulse 96 96 98 Oximetry - Procedure Description Procedures done: 18-gauge IV catheter was placed in the brachial vein under ultrasound guidance by ne ED Medical Decision Making - Lab Data Result diagrams: 10/13/17 11:00 10/13/17 13:12 - Medical Decision Making Patient has been monitored here in the emergency department on his med list is states that he is on Her outpatient after malanga being postictal Jolene that he is not taking Keppra several years and only takes Tegretol. Patient was loaded with Tegretol. Patient is alert oriented and awake at this time. Critical care attestation.: If time is entered above; I have spent that time in minutes in the direct care of this critically ill patient, excluding procedure time. ED Disposition Clinical Impression: Seizure Disposition: DC-01 TO HOME OR SELFCARE Is pt being admited?: No Does the pt Need Aspirin: No Condition: Stable
[2017-10-13 10:18] VITALS: BP 126/67
[2017-10-13] MEDS ORDERED: KEPPRA 1,000 MG/NS 0.75% 100ML 1,000 MG/100 ML BAG IV ONE (10:19)
[2017-10-13] MEDS ORDERED: NACL 0.9% 1000 ML 1,000 ML IV ONE (11:11)
[2017-10-13] MEDS ORDERED: ZOFRAN IV ONE (11:11)
[2017-10-13] MEDS ORDERED: TORADOL IV ONE (11:11)
[2017-10-13 11:23] LABS: Basophils % (Auto) 0.2 % (0.0-1.8); Hematocrit 48.5 % (35.5-45.6); Hemoglobin 15.7 gm/dl (11.8-15.2); Lymphocytes # (Auto) 0.8 K/mm3 (1.2-5.4); Lymphocytes % (Auto) 4.4 % (13.4-35.0); Mean Corpuscular HGB Conc 32 % (32-34); Mean Corpuscular Hemoglobin 29 pg (28-32); Mean Corpuscular Volume 88 fl (84-94); Monocytes # (Auto) 1.5 K/mm3 (0.0-0.8); Monocytes % (Auto) 8.1 % (0.0-7.3); Platelet Count 199 K/mm3 (140-440); Red Blood Count 5.53 M/mm3 (3.65-5.03); Red Cell Distribution Width 15.5 % (13.2-15.2)
[2017-10-13 13:38] LABS: BUN/Creatinine Ratio 9; Blood Urea Nitrogen 12 mg/dL (9-20); Calcium 8.2 mg/dL (8.4-10.2); Hemolysis Index 53
== END 2017-10-13 17:47 | disposition home or self-care (01) ==
LOC: ED 09:53
DX: Z53.21 Procedure and treatment not carried out due to patient leaving prior to being seen by health care provider (principal)
CPT/HCPCS: 36415; 80048; 85025; J1885; J1953; J2405; J7030

== ENCOUNTER 2017-10-21 05:50 | Inpatient (IN) | payer SELFPAY ==
--- NOTE | 2017-10-21 07:05 | Emergency Department Report ---
ED Seizure HPI - General Chief Complaint: Seizure Stated Complaint: SEIZURE Time Seen by Provider: 10/21/17 06:08 Source: EMS Mode of arrival: Stretcher Limitations: No Limitations - History of Present Illness Initial Comments: 32-year-old male with history of seizure presents to ED. Patient has had several seizures all night. was quite frustrated according to EMS. Patient arrived to ED agitated. He states that he has mild headache. He states that he has nausea. He refuses blood draw. He refuses IV stick. He states he just wants some water. "I want hydration." I spoke with Ms. Barr who stated patient is now taking Keppra, Tegretol and gabapentin. Since his discharge last week, he has been compliant with his medications. MD Complaint: seizure - Related Data Previous Rx's Medication Instructions Recorded Last Taken Type carBAMazepine [TEGretol] 200 mg PO TID #90 tablet 08/25/17 Unknown Rx levETIRAcetam [Keppra] 500 mg PO BID #60 tablet 08/25/17 Unknown Rx Allergies Allergy/AdvReac Type Severity Reaction Status Date / Time Penicillins Allergy Rash Verified 10/21/17 05:56 ED Review of Systems ROS: Stated complaint: SEIZURE Other details as noted in HPI Comment: Mr. Thornton refuses to give further history ED Past Medical Hx - Past Medical History Previous Medical History?: Yes Hx Congestive Heart Failure: No Hx Diabetes: No Hx Seizures: Yes (Grand Mal) Hx Asthma: No Hx COPD: No Hx HIV: No Additional medical history: closed head injury 2003 - Surgical History Past Surgical History?: Yes Additional Surgical History: left hand surgery. left leg surgery- steel rafael - Social History Smoking Status: Unknown if ever smoked - Medications Home Medications: Home Medications Medication Instructions Recorded Confirmed Last Taken Type carBAMazepine [TEGretol] 200 mg PO TID #90 tablet 08/25/17 Unknown Rx levETIRAcetam [Keppra] 500 mg PO BID #60 tablet 08/25/17 Unknown Rx ED Physical Exam - General Limitations: No Limitations General appearance: alert, in no apparent distress - Head Head exam: Present: atraumatic, normocephalic - Eye Eye exam: Present: normal appearance - ENT ENT exam: Present: mucous membranes moist - Neck Neck exam: Present: normal inspection - Respiratory Respiratory exam: Present: normal lung sounds bilaterally. Absent: respiratory distress, wheezes, rales - Cardiovascular Cardiovascular Exam: Present: regular rate, normal rhythm. Absent: systolic murmur, diastolic murmur, rubs, gallop - GI/Abdominal GI/Abdominal exam: Present: soft, normal bowel sounds. Absent: distended, tenderness, guarding, rebound - Rectal Rectal exam: Present: deferred - Extremities Exam Extremities exam: Present: normal inspection - Back Exam Back exam: Present: normal inspection - Neurological Exam Neurological exam: Present: alert, altered (articulate speech, Quite agitated seems appropriate) - Psychiatric Psychiatric exam: Present: normal affect, normal mood - Skin Skin exam: Present: warm, dry, intact, normal color. Absent: rash ED Course Vital Signs 10/21/17 10/21/17 10/21/17 06:48 08:30 11:17 Temperature 98.2 F 98.4 F Pulse Rate 88 76 Respiratory 24 20 20 Rate Blood Pressure 128/74 128/70 [Left] O2 Sat by Pulse 98 100 99 Oximetry - Reevaluation(s) Reevaluation #1: On initial evaluation patient refused care due to agitation. After an hour observation, he had another seizure. Even with the bed rales, he ended on the floor. No evidence of head trauma. I did not witness seizure activity. Patient did appear lethargic. He was moving all 4 extremities. He received IM lorazepam at that time. Once patient became awake, he was agitated and combative. He continued to refuse all care. He required IM Geodon with the assistance of security personnel. ED Medical Decision Making - Lab Data Result diagrams: 10/21/17 10:25 - Medical Decision Making Mr. Thornton presents with status epilepticus. He has persistent altered mental status and two potentially unwitnessed seizures in the ED. After the first seizure, he was found on the floor in spite bed rails being up. He required sedation with geiodon due to agitation and combative behavior. He received 4 mg of Ativan total. He also received IV Keppra load. Patient is fully awake in between seizures but he is quite combative which appears to be stereotypical according to previous documentation. I reviewed previous discharge summaries. Dr. Brooks neurologist agreed to consult. Dr. Young will admit Critical care attestation.: If time is entered above; I have spent that time in minutes in the direct care of this critically ill patient, excluding procedure time. ED Disposition Clinical Impression: Status epilepticus Disposition: DC09 OP ADMIT IP TO THIS HOSP Is pt being admited?: Yes Does the pt Need Aspirin: No Condition: Fair Referrals: JERMAIN BECERRA MD [Primary Care Provider] - 3-5 Days
[2017-10-21] MEDS ORDERED: ATIVAN ONE (08:18)
[2017-10-21] MEDS ORDERED: ATIVAN IV ONE ×2 (08:29→09:25)
[2017-10-21] MEDS ORDERED: KEPPRA 500 MG in D5W 100 ML IV ONE (08:30)
[2017-10-21] MEDS ORDERED: GEODON IM ONE ×2 (09:00→09:02)
[2017-10-21] MEDS ORDERED: KEPPRA 500 MG/NS 0.82% 100 ML 500 MG/100 ML BAG IV NR (09:00)
[2017-10-21 10:39] LABS: Hematocrit 47.5 % (35.5-45.6); Hemoglobin 15.3 gm/dl (11.8-15.2); Mean Corpuscular HGB Conc 32 % (32-34); Mean Corpuscular Hemoglobin 28 pg (28-32); Mean Corpuscular Volume 87 fl (84-94); Red Blood Count 5.44 M/mm3 (3.65-5.03)
[2017-10-21 11:22] LABS: Basophils % (Manual) 0 % (0.0-1.8); Platelet Clumps Few; Platelet Estimate Consistent w Auto; RBC Morphology Normal; Total Cells Counted 100
[2017-10-21 11:35] LABS: Platelet Count 209 K/mm3 (140-440)
--- NOTE | 2017-10-21 12:48 | Cat Scan Report ---
CT scan cervical spine: History: Seizure. Findings: Odontoid process and lateral mass and anterior and posterior arch of atlas appears unremarkable. Normal occipital condyles. Normal height of vertebral bodies and intravertebral disc. Normal articular surfaces. Normal prevertebral soft tissue. Impression: Essentially negative cervical spine
--- NOTE | 2017-10-21 12:49 | Cat Scan Report ---
CT scan of head without IV contrast: History: Seizure. Findings: Ventricles are normal in size and midline in location. No evidence of acute ischemia, hemorrhage or mass. No extra axial fluid collection. Normal brainstem and cerebellum. Retention cyst or polyp measuring 0.8 cm in diameter left maxillary sinus. Impression: No acute intracranial abnormality. Sinus disease.
[2017-10-21] MEDS ORDERED: NACL 0.9% 1000 ML 1,000 ML IV ONE (13:10)
[2017-10-21 16:29] LABS: Alanine Aminotransferase 17 units/L (7-56); Albumin 4.4 g/dL (3.9-5); BUN/Creatinine Ratio 8; Blood Urea Nitrogen 9 mg/dL (9-20); Calcium 8.9 mg/dL (8.4-10.2); Hemolysis Index 2
--- NOTE | 2017-10-21 21:22 | History and Physical Report ---
History of Present Illness Date of examination: 10/21/17 Date of admission: 10/21/17 16:18 Chief complaint: Seizures -Multiple episodes History of present illness: History of Present Illness 32-year-old male with history of seizure presents to ED. Patient has had several seizures all night. was quite frustrated according to EMS. Patient arrived to ED agitated. He states that he has mild headache. He states that he has nausea. He refuses blood draw. He refuses IV stick. He states he just wants some water. "I want hydration." Ms. Barr states patient is now taking Keppra, Tegretol and gabapentin. Since his discharge last week, he has been compliant with his medications. Review of Systems ROS: Stated complaint: SEIZURE Other details as noted in HPI Comment: Mr. Thornton refuses to give further history Past Medical History Hx Seizures: Yes ([place]) : closed head injury 2003 - Surgical History Past Surgical History?: Yes Additional Surgical History: left hand surgery. left leg surgery- steel rafael - Social History Smoking Status: Unknown if ever smoked - Medications Home Medications: Home Medications Medication Instructions Recorded Confirmed Last Taken Type carBAMazepine [TEGretol] 200 mg PO TID #90 tablet 08/25/17 Unknown Rx levETIRAcetam [Keppra] 500 mg PO BID #60 tablet 08/25/17 Unknown Rx Medications and Allergies Allergies Allergy/AdvReac Type Severity Reaction Status Date / Time Penicillins Allergy Rash Verified 10/21/17 05:56 Home Medications Medication Instructions Recorded Confirmed Last Taken Type carBAMazepine [TEGretol] 200 mg PO TID #90 tablet 08/25/17 10/21/17 Unknown Rx levETIRAcetam [Keppra] 500 mg PO BID #60 tablet 08/25/17 10/21/17 Unknown Rx Exam - Constitutional Vitals: Temp Pulse Resp BP Pulse Ox 98.4 F 74 24 144/79 90 10/21/17 16:30 10/21/17 16:30 10/21/17 19:50 10/21/17 21:10 10/21/17 20:43 General appearance: Present: mild distress, well-nourished - EENT Eyes: Present: PERRL ENT: hearing intact, clear oral mucosa - Neck Neck: Present: supple, normal ROM - Respiratory Respiratory effort: normal Respiratory: bilateral: CTA - Cardiovascular Heart rate: 80 Rhythm: regular Heart Sounds: Present: S1 & S2. Absent: rub, click - Extremities Extremities: no ischemia, pulses intact, pulses symmetrical, No edema Peripheral Pulses: within normal limits - Abdominal General gastrointestinal: Present: soft, non-tender, non-distended, normal bowel sounds Male genitourinary: Present: normal - Integumentary Integumentary: Present: clear, warm, dry - Musculoskeletal Musculoskeletal: gait normal, strength equal bilaterally - Psychiatric Psychiatric: other (Decreased responsive-postictal) - Neurologic Neurologic: CNII-XII intact, moves all extremities Results - Labs CBC & Chem 7: 10/21/17 10:25 10/21/17 15:48 Labs: Laboratory Last Values WBC 17.6 K/mm3 (4.5-11.0) H 10/21/17 10:25 RBC 5.44 M/mm3 (3.65-5.03) H 10/21/17 10:25 Hgb 15.3 gm/dl (11.8-15.2) H 10/21/17 10:25 Hct 47.5 % (35.5-45.6) H 10/21/17 10:25 MCV 87 fl (84-94) 10/21/17 10:25 MCH 28 pg (28-32) 10/21/17 10:25 MCHC 32 % (32-34) 10/21/17 10:25 RDW 15.0 % (13.2-15.2) 10/21/17 10:25 Plt Count 209 K/mm3 (140-440) 10/21/17 10:25 Add Manual Diff Complete 10/21/17 10:25 Total Counted 100 10/21/17 10:25 Seg Neuts % (Manual) 89.0 % (40.0-70.0) H 10/21/17 10:25 Band Neutrophils % 0 % 10/21/17 10:25 Lymphocytes % (Manual) 9.0 % (13.4-35.0) L 10/21/17 10:25 Reactive Lymphs % (Man) 0 % 10/21/17 10:25 Monocytes % (Manual) 1.0 % (0.0-7.3) 10/21/17 10:25 Eosinophils % (Manual) 1.0 % (0.0-4.3) 10/21/17 10:25 Basophils % (Manual) 0 % (0.0-1.8) 10/21/17 10:25 Metamyelocytes % 0 % 10/21/17 10:25 Myelocytes % 0 % 10/21/17 10:25 Promyelocytes % 0 % 10/21/17 10:25 Blast Cells % 0 % 10/21/17 10:25 Nucleated RBC % Not Reportable 10/21/17 10:25 Seg Neutrophils # Man 15.7 K/mm3 (1.8-7.7) H 10/21/17 10:25 Band Neutrophils # 0.0 K/mm3 10/21/17 10:25 Lymphocytes # (Manual) 1.6 K/mm3 (1.2-5.4) 10/21/17 10:25 Abs React Lymphs (Man) 0.0 K/mm3 10/21/17 10:25 Monocytes # (Manual) 0.2 K/mm3 (0.0-0.8) 10/21/17 10:25 Eosinophils # (Manual) 0.2 K/mm3 (0.0-0.4) 10/21/17 10:25 Basophils # (Manual) 0.0 K/mm3 (0.0-0.1) 10/21/17 10:25 Metamyelocytes # 0.0 K/mm3 10/21/17 10:25 Myelocytes # 0.0 K/mm3 10/21/17 10:25 Promyelocytes # 0.0 K/mm3 10/21/17 10:25 Blast Cells # 0.0 K/mm3 10/21/17 10:25 WBC Morphology Not Reportable 10/21/17 10:25 Hypersegmented Neuts Not Reportable 10/21/17 10:25 Hyposegmented Neuts Not Reportable 10/21/17 10:25 Hypogranular Neuts Not Reportable 10/21/17 10:25 Smudge Cells Not Reportable 10/21/17 10:25 Toxic Granulation Not Reportable 10/21/17 10:25 Toxic Vacuolation Not Reportable 10/21/17 10:25 Dohle Bodies Not Reportable 10/21/17 10:25 Pelger-Huet Anomaly Not Reportable 10/21/17 10:25 Aleyda Rods Not Reportable 10/21/17 10:25 Platelet Estimate Consistent w auto 10/21/17 10:25 Clumped Platelets Few 10/21/17 10:25 Plt Clumps, EDTA Not Reportable 10/21/17 10:25 Large Platelets Not Reportable 10/21/17 10:25 Giant Platelets Not Reportable 10/21/17 10:25 Platelet Satelliting Not Reportable 10/21/17 10:25 Plt Morphology Comment Not Reportable 10/21/17 10:25 RBC Morphology Normal 10/21/17 10:25 Dimorphic RBCs Not Reportable 10/21/17 10:25 Polychromasia Not Reportable 10/21/17 10:25 Hypochromasia Not Reportable 10/21/17 10:25 Poikilocytosis Not Reportable 10/21/17 10:25 Anisocytosis Not Reportable 10/21/17 10:25 Microcytosis Not Reportable 10/21/17 10:25 Macrocytosis Not Reportable 10/21/17 10:25 Spherocytes Not Reportable 10/21/17 10:25 Pappenheimer Bodies Not Reportable 10/21/17 10:25 Sickle Cells Not Reportable 10/21/17 10:25 Target Cells Not Reportable 10/21/17 10:25 Tear Drop Cells Not Reportable 10/21/17 10:25 Ovalocytes Not Reportable 10/21/17 10:25 Helmet Cells Not Reportable 10/21/17 10:25 [place] Bodies Not Reportable 10/21/17 10:25 Oscar Rings Not Reportable 10/21/17 10:25 Claribel Cells Not Reportable 10/21/17 10:25 Bite Cells Not Reportable 10/21/17 10:25 Crenated Cell Not Reportable 10/21/17 10:25 Elliptocytes Not Reportable 10/21/17 10:25 Acanthocytes (Spur) Not Reportable 10/21/17 10:25 Rouleaux Not Reportable 10/21/17 10:25 Hemoglobin C Crystals Not Reportable 10/21/17 10:25 Schistocytes Not Reportable 10/21/17 10:25 Malaria parasites Not Reportable 10/21/17 10:25 Enrique Bodies Not Reportable 10/21/17 10:25 Hem Pathologist Commnt No 10/21/17 10:25 Sodium 143 mmol/L (137-145) 10/21/17 15:48 Potassium 4.5 mmol/L (3.6-5.0) 10/21/17 15:48 Chloride 104.2 mmol/L (98-107) 10/21/17 15:48 Carbon Dioxide 20 mmol/L (22-30) L 10/21/17 15:48 Anion Gap 23 mmol/L 10/21/17 15:48 BUN 9 mg/dL (9-20) 10/21/17 15:48 Creatinine 1.2 mg/dL (0.8-1.5) 10/21/17 15:48 Estimated GFR > 60 ml/min 10/21/17 15:48 BUN/Creatinine Ratio 8 % 10/21/17 15:48 Glucose 92 mg/dL (75-100) 10/21/17 15:48 Calcium 8.9 mg/dL (8.4-10.2) 10/21/17 15:48 Total Bilirubin 0.20 mg/dL (0.1-1.2) 10/21/17 15:48 AST 24 units/L (5-40) 10/21/17 15:48 ALT 17 units/L (7-56) 10/21/17 15:48 Alkaline Phosphatase 54 units/L (35-129) 10/21/17 15:48 Total Creatine Kinase 1106 units/L (55-170) H 10/21/17 15:48 Total Protein 7.3 g/dL (6.3-8.2) 10/21/17 15:48 Albumin 4.4 g/dL (3.9-5) 10/21/17 15:48 Albumin/Globulin Ratio 1.5 % 10/21/17 15:48 Carbamazepine 2.0 ug/mL (4-12) L 10/21/17 15:48 Short CBC 10/21/17 Range/Units 10:25 WBC 17.6 H (4.5-11.0) K/mm3 Hgb 15.3 H (11.8-15.2) gm/dl Hct 47.5 H (35.5-45.6) % Plt Count 209 (140-440) K/mm3 BMP 10/21/17 15:48 Sodium 143 Potassium 4.5 Chloride 104.2 Carbon Dioxide 20 L BUN 9 Creatinine 1.2 Glucose 92 Calcium 8.9 Cardiac Enzymes 10/21/17 Range/Units 15:48 Total Creatine Kinase 1106 H (55-170) units/L Liver Function 10/21/17 Range/Units 15:48 Total Bilirubin 0.20 (0.1-1.2) mg/dL AST 24 (5-40) units/L ALT 17 (7-56) units/L Alkaline Phosphatase 54 (35-129) units/L Albumin 4.4 (3.9-5) g/dL - Imaging and Cardiology CT Scan - head: report reviewed Assessment and Plan Advance Directives: Yes (Full code) VTE prophylaxis?: Chemical Plan of care discussed with patient/family: Yes - Patient Problems (1) Status epilepticus Current Visit: Yes Status: Acute Plan to address problem: IV Keppa and bridge to Po Keppra 750 q12 (2) Noncompliance with medication regimen Current Visit: No Status: Acute Plan to address problem: To be counselled again (3) Leukocytosis Current Visit: Yes Status: Acute Plan to address problem: Sec to Demargination No Abx at this point (4) Rhabdomyolysis Current Visit: Yes Status: Acute Qualifiers: Rhabdomyolysis type: non-traumatic Qualified Code(s): M62.82 - Rhabdomyolysis Plan to address problem: Mild sec to seizures IV fluids (5) DVT prophylaxis Current Visit: Yes Status: Acute Plan to address problem: on lovenox
[2017-10-21] MEDS ORDERED: KEPPRA 750 MG in D5W 100 ML IV SCH (22:00)
[2017-10-22] MEDS ORDERED: NACL 0.9% 1000 ML 1,000 ML IV SCH (08:00)
[2017-10-22 08:06] VITALS: BP 134/76
--- NOTE | 2017-10-22 12:05 | Discharge Summary ---
Providers - Providers Date of Admission: 10/21/17 16:18 Date of discharge: 10/22/17 Attending physician: MEREDITH ARORA 10/21/17 16:47 Consult to Physician [CONS] Routine Consulting Provider: NICK TODD Reason For Exam: seizure Place consult to:: NICK TODD Notified:: NICK TODD Was contact made?: Yes Comment:: DR. TODD CAME DOWN TO SEE PT Primary care physician: JERMAIN BECERRA Hospitalization Reason for admission: seizures Condition: Fair Pertinent studies: CT cervical spine; normal study CT head without contrast; no acute intracranial abnormality noted, sinus disease Hospital course: 32-year-old male patient with significant past medical history of seizure disorder secondary to traumatic brain injury in 2003 was admitted through emergency room with status epilepticus with multiple episodes of witnessed seizures Patient was initially evaluated and admitted to the hospital being managed with antiepileptic medications, based on seizure precautions Patient is being closely monitored Considering neurology evaluation for further recommendations Today patient is comfortable No new episodes of seizures Vital signs reviewed Physical examination is as detailed below Patient however wanted to leave AGAINST MEDICAL ADVICE Risks, consequences of leaving AMA were discussed with the patient He verbalized understanding, is at the bedside, signed AMA papers and left along with the I strongly advised to go to emergency room should he have new episodes of seizures I also advised him to see his private neurologist for further evaluation and management is Patient verbalized understanding Discharge diagnosis; Status epilepticus History of seizure disorder Leukocytosis Rhabdomyolysis Patient left AMA Disposition: [id number] LEFT AGAINST MED ADVICE Time spent for discharge: 31 min Core Measure Documentation - Palliative Care Palliative Care/ Comfort Measures: Not Applicable - Core Measures Any of the following diagnoses?: none Exam - Constitutional Vitals: Temp Pulse Resp BP Pulse Ox 98.4 F 64 18 134/76 100 10/22/17 08:51 10/22/17 08:51 10/22/17 08:51 10/22/17 08:51 10/22/17 08:51 General appearance: Present: no acute distress, well-nourished - EENT Eyes: Present: PERRL, EOM intact - Neck Neck: Present: supple, normal ROM - Respiratory Respiratory effort: normal Respiratory: bilateral: diminished, negative: rales, rhonchi, wheezing - Cardiovascular Rhythm: regular Heart Sounds: Present: S1 & S2 - Extremities Extremities: no ischemia, No edema Peripheral Pulses: within normal limits - Abdominal General gastrointestinal: Present: soft, non-tender, non-distended, normal bowel sounds - Integumentary Integumentary: Present: clear, warm - Musculoskeletal Musculoskeletal: strength equal bilaterally - Psychiatric Psychiatric: appropriate mood/affect, cooperative - Neurologic Neurologic: CNII-XII intact, moves all extremities Plan Activity: no restrictions, no driving until cleared by PCP, other (seizure precautions) Diet: regular Additional Instructions: Advised to see private neurologist for his seizure disorder. Strongly advised not to drive or operate heavy machinery. Advised to comply with medications. Patient reports that he has medications. Left AGAINST MEDICAL ADVICE Follow up with: JERMAIN BECERRA MD [Primary Care Provider] - 3-5 Days Forms: AMA Form
--- NOTE | 2017-10-23 23:31 | Consultation ---
HISTORY OF PRESENT ILLNESS: This is a 32-year-old black male that presents to [facility] with a recurrent onset of uncontrollable status, seizures. The patient has a prior medical history of being on anticonvulsants Keppra and valproic acid. By history, he was probably not taking the optimal dose, had missed several doses. His blood levels were therapeutic and he is readmitted at this time for further assessment and management of seizures. He has had prior medical workups for this, CT scans in the past have been negative. He has no allergies. No family members are present at the time of my assessment of the patient to obtain a cross history from. Therefore, my information is quite limited. I did speak with the Emergency Room physician earlier regarding the presenting symptoms and history. PHYSICAL EXAMINATION: VITAL SIGNS: At present, his blood pressure is 137/80, pulse rate 80, respirations 18. NEUROLOGIC: Cranial nerves are intact. Neck is supple. Speech is clear. No seizure activity is present. Motor tone is normal. Cranial nerves are intact. No evidence of craniocervical trauma is present. No bleeding, no evidence of any recurrent seizure activity noted. No tremors, no asterixis. IMPRESSION: Generalized seizures, status epilepticus occurring in a patient with compliance problems, most likely. Plan to monitor response to therapeutic dosing with Keppra and valproic acid. PLAN: Review over imaging studies which have been done previously. JOB# [id number] LULU/CLEO
== END 2017-10-22 10:15 | disposition left against medical advice (07) | DRG 101 ==
LOC: ED 05:50 → 4A 16:18
PROVIDERS: ADMIT Internal Medicine; ATTEND Internal Medicine
DX: G40.901 Epilepsy, unspecified, not intractable, with status epilepticus (principal); M62.82 Rhabdomyolysis; Z88.0 Allergy status to penicillin; Z91.19 Patient's noncompliance with other medical treatment and regimen
CPT/HCPCS: 36415; 70450; 72125; 80053; 80156; 82550; 85007; 85025; 87040; 96365; 96372; 96375; 96376; 99285; J1953; J2060; J3486; J7030

== ENCOUNTER 2017-12-15 08:14 | Inpatient (IN) | payer SELFPAY ==
[2017-12-15] MEDS ORDERED: HALDOL IM ONE (09:05)
[2017-12-15] MEDS ORDERED: ATIVAN IM ONE ×3 (09:05→14:27)
[2017-12-15] MEDS ORDERED: BENADRYL IM ONE (09:05)
[2017-12-15 10:10] LABS: Hematocrit 52.6 % (35.5-45.6); Hemoglobin 17.1 gm/dl (11.8-15.2); Mean Corpuscular HGB Conc 32 % (32-34); Mean Corpuscular Hemoglobin 28 pg (28-32); Mean Corpuscular Volume 85 fl (84-94); Platelet Count 176 K/mm3 (140-440); Red Blood Count 6.18 M/mm3 (3.65-5.03); Red Cell Distribution Width 15.2 % (13.2-15.2)
[2017-12-15] MEDS ORDERED: KEPPRA 1,000 MG/NS 0.75% 100ML 1,000 MG/100 ML BAG IV ONE (11:06)
[2017-12-15] MEDS ORDERED: ATIVAN ONE (11:15)
--- NOTE | 2017-12-15 12:00 | Emergency Department Report ---
ED Seizure HPI - General Chief Complaint: Seizure Stated Complaint: SEIZURE Time Seen by Provider: 12/15/17 11:05 Source: EMS Mode of arrival: Stretcher Limitations: No Limitations - History of Present Illness Initial Comments: 32-year-old male with a past medical history of seizures and noncompliance presents to the hospital to the hospital after having multiple seizures. Patient was combative upon arrival and received Haldol, Benadryl, Ativan prior to my evaluation. At this time patient is still drowsy and not answering questions. As per triage EMS reported patient had 3 seizures this morning and has not been taking his medication. - Related Data Previous Rx's Medication Instructions Recorded Last Taken Type carBAMazepine [TEGretol] 200 mg PO TID #90 tablet 08/25/17 Unknown Rx levETIRAcetam [Keppra] 500 mg PO BID #60 tablet 08/25/17 Unknown Rx Allergies Allergy/AdvReac Type Severity Reaction Status Date / Time Penicillins Allergy Rash Verified 10/21/17 05:56 ED Review of Systems ROS: Stated complaint: SEIZURE Other details as noted in HPI Comment: Unobtainable due to pts medical conditions ED Past Medical Hx - Past Medical History Hx Congestive Heart Failure: No Hx Diabetes: No Hx Seizures: Yes ([place]) Hx Asthma: No Hx COPD: No Hx HIV: No Additional medical history: closed head injury 2003 - Surgical History Additional Surgical History: left hand surgery. left leg surgery- steel rafael - Social History Smoking Status: Current Every Day Smoker - Medications Home Medications: Home Medications Medication Instructions Recorded Confirmed Last Taken Type carBAMazepine [TEGretol] 200 mg PO TID #90 tablet 08/25/17 10/21/17 Unknown Rx levETIRAcetam [Keppra] 500 mg PO BID #60 tablet 08/25/17 10/21/17 Unknown Rx ED Physical Exam - General Limitations: No Limitations - Other Other exam information: General: No limitations, patient is alert in no acute distress Head exam: Atraumatic, normocephalic Eyes exam: Normal appearance ENT: Moist mucous membrane, normal oropharynx Neck exam: Normal inspection, full range of motion, no meningismus nontender Respiratory exam: Clear to auscultation bilateral, no wheezes, rales, crackles Cardiovascular: Normal rate and rhythm, normal heart sounds Abdomen: Soft, nondistended, and nontender, with normal bowel sounds, no rebound, or guarding Extremity: Full range of motion normal inspection no deformity Back: Normal Inspection, full range of motion, no tenderness Neurologic: Drowsy or lethargic, patient has strength of all extremities and gross sensation seems to be intact. Patient is sleepy after medicines not able to answer questions Psychiatric: normal affect, normal mood Skin: Warm, dry, intact ED Course Vital Signs 12/15/17 12/15/17 12/15/17 08:38 08:46 08:56 Temperature 97.6 F Pulse Rate 79 Respiratory 18 Rate Blood Pressure 124/64 161/65 Blood Pressure [Left] O2 Sat by Pulse 96 94 99 Oximetry 12/15/17 12/15/17 12/15/17 08:59 09:00 09:15 Temperature 97.6 F Pulse Rate 79 Respiratory 18 Rate Blood Pressure 118/64 120/68 Blood Pressure 161/65 [Left] O2 Sat by Pulse 99 Oximetry 12/15/17 12/15/17 12/15/17 09:45 10:00 10:15 Temperature Pulse Rate Respiratory Rate Blood Pressure 116/65 106/61 111/69 Blood Pressure [Left] O2 Sat by Pulse Oximetry 12/15/17 12/15/17 12/15/17 10:30 10:45 11:00 Temperature Pulse Rate Respiratory Rate Blood Pressure 118/85 113/78 115/70 Blood Pressure [Left] O2 Sat by Pulse Oximetry 12/15/17 12/15/17 12/15/17 11:15 11:30 11:45 Temperature Pulse Rate Respiratory Rate Blood Pressure 121/68 129/82 128/83 Blood Pressure [Left] O2 Sat by Pulse Oximetry 12/15/17 12/15/17 12/15/17 12:00 12:15 12:30 Temperature Pulse Rate Respiratory Rate Blood Pressure 138/77 135/69 131/70 Blood Pressure [Left] O2 Sat by Pulse Oximetry 12/15/17 12/15/17 12/15/17 12:45 13:00 13:15 Temperature Pulse Rate Respiratory Rate Blood Pressure 127/70 122/68 132/77 Blood Pressure [Left] O2 Sat by Pulse Oximetry 12/15/17 12/15/17 12/15/17 13:30 13:45 14:00 Temperature Pulse Rate Respiratory Rate Blood Pressure 130/72 125/77 130/81 Blood Pressure [Left] O2 Sat by Pulse Oximetry 12/15/17 12/15/17 12/15/17 14:15 14:30 14:45 Temperature Pulse Rate Respiratory Rate Blood Pressure 132/86 118/62 127/83 Blood Pressure [Left] O2 Sat by Pulse Oximetry 12/15/17 12/15/17 12/15/17 15:01 15:15 15:30 Temperature Pulse Rate Respiratory Rate Blood Pressure 119/73 119/72 128/64 Blood Pressure [Left] O2 Sat by Pulse Oximetry - Reevaluation(s) Reevaluation #1: 12/15/17 18:20 No improvement in mental status ED Medical Decision Making - Lab Data Result diagrams: 12/15/17 09:38 12/15/17 14:55 Lab Results 12/15/17 12/15/17 12/15/17 Range/Units 09:37 09:38 14:55 WBC 16.8 H (4.5-11.0) K/mm3 RBC 6.18 H (3.65-5.03) M/mm3 Hgb 17.1 H (11.8-15.2) gm/dl Hct 52.6 H (35.5-45.6) % MCV 85 (84-94) fl MCH 28 (28-32) pg MCHC 32 (32-34) % RDW 15.2 (13.2-15.2) % Plt Count 176 (140-440) K/mm3 Sodium 135 L (137-145) mmol/L Potassium 5.8 H (3.6-5.0) mmol/L Chloride 102.5 (98-107) mmol/L Carbon Dioxide 19 L (22-30) mmol/L Anion Gap 19 mmol/L BUN 15 (9-20) mg/dL Creatinine 1.5 (0.8-1.5) mg/dL Estimated GFR > 60 ml/min BUN/Creatinine Ratio 10 % Glucose 86 (75-100) mg/dL POC Glucose 83 (70-105) Calcium 8.9 (8.4-10.2) mg/dL Magnesium (1.7-2.3) mg/dL Total Creatine Kinase (55-170) units/L Urine Color (Yellow) Urine Turbidity (Clear) Urine pH (5.0-7.0) Ur Specific Nicholls (1.003-1.030) Urine Protein (Negative) mg/dL Urine Glucose (UA) (Negative) mg/dL Urine Ketones (Negative) mg/dL Urine Blood (Negative) Urine Nitrite (Negative) Urine Bilirubin (Negative) Urine Urobilinogen (<2.0) mg/dL Ur Leukocyte Esterase (Negative) Urine WBC (Auto) (0.0-6.0) /HPF Urine RBC (Auto) (0.0-6.0) /HPF Uric Acid Crystals Urine Mucus /HPF Urine Opiates Screen Urine Methadone Screen Ur Barbiturates Screen Carbamazepine (4-12) ug/mL Ur Phencyclidine Scrn Ur Amphetamines Screen U Benzodiazepines Scrn Urine Cocaine Screen U Marijuana (THC) Screen Drugs of Abuse Note 12/15/17 12/15/17 12/15/17 Range/Units 14:55 14:55 14:55 WBC (4.5-11.0) K/mm3 RBC (3.65-5.03) M/mm3 Hgb (11.8-15.2) gm/dl Hct (35.5-45.6) % MCV (84-94) fl MCH (28-32) pg MCHC (32-34) % RDW (13.2-15.2) % Plt Count (140-440) K/mm3 Sodium (137-145) mmol/L Potassium (3.6-5.0) mmol/L Chloride (98-107) mmol/L Carbon Dioxide (22-30) mmol/L Anion Gap mmol/L BUN (9-20) mg/dL Creatinine (0.8-1.5) mg/dL Estimated GFR ml/min BUN/Creatinine Ratio % Glucose (75-100) mg/dL POC Glucose (70-105) Calcium (8.4-10.2) mg/dL Magnesium 3.00 H (1.7-2.3) mg/dL Total Creatine Kinase 1526 H (55-170) units/L Urine Color (Yellow) Urine Turbidity (Clear) Urine pH (5.0-7.0) Ur Specific Nicholls (1.003-1.030) Urine Protein (Negative) mg/dL Urine Glucose (UA) (Negative) mg/dL Urine Ketones (Negative) mg/dL Urine Blood (Negative) Urine Nitrite (Negative) Urine Bilirubin (Negative) Urine Urobilinogen (<2.0) mg/dL Ur Leukocyte Esterase (Negative) Urine WBC (Auto) (0.0-6.0) /HPF Urine RBC (Auto) (0.0-6.0) /HPF Uric Acid Crystals Urine Mucus /HPF Urine Opiates Screen Urine Methadone Screen Ur Barbiturates Screen Carbamazepine 2.0 L (4-12) ug/mL Ur Phencyclidine Scrn Ur Amphetamines Screen U Benzodiazepines Scrn Urine Cocaine Screen U Marijuana (THC) Screen Drugs of Abuse Note 12/15/17 12/15/17 Range/Units Unknown Unknown WBC (4.5-11.0) K/mm3 RBC (3.65-5.03) M/mm3 Hgb (11.8-15.2) gm/dl Hct (35.5-45.6) % MCV (84-94) fl MCH (28-32) pg MCHC (32-34) % RDW (13.2-15.2) % Plt Count (140-440) K/mm3 Sodium (137-145) mmol/L Potassium (3.6-5.0) mmol/L Chloride (98-107) mmol/L Carbon Dioxide (22-30) mmol/L Anion Gap mmol/L BUN (9-20) mg/dL Creatinine (0.8-1.5) mg/dL Estimated GFR ml/min BUN/Creatinine Ratio % Glucose (75-100) mg/dL POC Glucose (70-105) Calcium (8.4-10.2) mg/dL Magnesium (1.7-2.3) mg/dL Total Creatine Kinase (55-170) units/L Urine Color Yellow (Yellow) Urine Turbidity Clear (Clear) Urine pH 5.0 (5.0-7.0) Ur Specific Nicholls 1.015 (1.003-1.030) Urine Protein 30 mg/dl (Negative) mg/dL Urine Glucose (UA) Neg (Negative) mg/dL Urine Ketones Tr (Negative) mg/dL Urine Blood Mod (Negative) Urine Nitrite Neg (Negative) Urine Bilirubin Neg (Negative) Urine Urobilinogen < 2.0 (<2.0) mg/dL Ur Leukocyte Esterase Neg (Negative) Urine WBC (Auto) 2.0 (0.0-6.0) /HPF Urine RBC (Auto) 1.0 (0.0-6.0) /HPF Uric Acid Crystals Few Urine Mucus Few /HPF Urine Opiates Screen Presumptive negative Urine Methadone Screen Presumptive negative Ur Barbiturates Screen Presumptive negative Carbamazepine (4-12) ug/mL Ur Phencyclidine Scrn Presumptive negative Ur Amphetamines Screen Presumptive negative U Benzodiazepines Scrn Presumptive negative Urine Cocaine Screen Presumptive negative U Marijuana (THC) Screen Presumptive positive Drugs of Abuse Note Disclamer - Radiology Data Radiology results: report reviewed (ct head: naf) - Medical Decision Making Patient has been in the ER for greater than 10 hours without any significant change in mental status. Delay in results in care do to persistent combativeness and refusal of blood draw and IV attempts. During the ED stay patient received multiple doses of Ativan in addition to his initial haldol, Ativan, and Benadryl so that we may obtain IV access and blood draws. Patient is still not at his baseline mental status and will be admitted for IV hydration given her elevated CK with mild elevation in creatinine as well as seizure treatment and reevaluation in mental status until at baseline + hyperkalemia. discussed with hospitalist, will place further orders. - Differential Diagnosis post ictal, status epilepticus, oversedation, ICH, noncompliance, encephalo Critical Care Time: No Critical care attestation.: If time is entered above; I have spent that time in minutes in the direct care of this critically ill patient, excluding procedure time. ED Disposition Clinical Impression: Seizure, Leukocytosis, Altered mental status, Noncompliance with medication regimen, Hyperkalemia Rhabdomyolysis Qualifiers: Rhabdomyolysis type: non-traumatic Qualified Code(s): M62.82 - Rhabdomyolysis Disposition: OP ADMIT IP TO THIS HOSP Is pt being admited?: Yes Condition: Stable Time of Disposition: 18:20 (Dr Eastman/hosp)
[2017-12-15] MEDS ORDERED: KEPPRA PO ONE (14:27)
[2017-12-15 15:03] LABS: Bilirubin,Urine NEG (Negative); Blood,Urine MOD (Negative); Color,Urine Yellow (Yellow); Mucus,Urine FEW /HPF; Urobilinogen,Urine < 2.0 mg/dL (<2.0)
[2017-12-15 15:09] LABS: Amphetamine Screen,Urine PRESUMPTIVE NEGATIVE; Benzodiazepines Screen,Urine PRESUMPTIVE NEGATIVE; Cocaine Screen,Urine PRESUMPTIVE NEGATIVE; Methadone Screen,Urine PRESUMPTIVE NEGATIVE; Opiate Screen,Urine PRESUMPTIVE NEGATIVE
[2017-12-15 15:16] LABS: BUN/Creatinine Ratio 10; Blood Urea Nitrogen 15 mg/dL (9-20); Calcium 8.9 mg/dL (8.4-10.2); Hemolysis Index 27
[2017-12-15] MEDS ORDERED: NACL 0.9% 1000 ML 1,000 ML IV ONE (15:29)
[2017-12-15 15:35] LABS: Cannabinoid Screen,Urine PRESUMPTIVE POSITIVE
--- NOTE | 2017-12-15 18:00 | History and Physical Report ---
History of Present Illness Chief complaint: confused, and agitated History of present illness: 32 YO Male with Seizure Disorder, Medication Noncompliance, Nicotine Dependence presents to ED for evaluation. Pt is confused, lethargic, agitated, and unable to provide detailed history. Pt history taken from family, and EMS. As per family, the patient had three witnessed seizures this morning. DMS was notified , and upon arrival the patient was found to be postictal. Pt transported to [facility] for further care and evaluation. Pt was seen and evaluated in ED and found to have Rhabdomyolysis, as well as Encephalopathy. Patient was also confused, and combative upon arrival. Pt was treated with Haldol, Benadryl. Pt admitted to medical floor. Past History Past Medical History: seizures Past Surgical History: Other (left Leg, Left hand) Social history: smoking Family history: no significant family history (reviewed) Medications and Allergies Allergies Allergy/AdvReac Type Severity Reaction Status Date / Time Penicillins Allergy Rash Verified 10/21/17 05:56 Home Medications Medication Instructions Recorded Confirmed Last Taken Type carBAMazepine [TEGretol] 200 mg PO TID #90 tablet 08/25/17 10/21/17 Unknown Rx levETIRAcetam [Keppra] 500 mg PO BID #60 tablet 08/25/17 10/21/17 Unknown Rx Review of Systems ROS unobtainable: due to mental status Exam - Constitutional Vitals: Temp Pulse Resp BP Pulse Ox 97.6 F 79 18 161/65 99 12/15/17 08:59 12/15/17 08:59 12/15/17 08:59 12/15/17 08:59 12/15/17 08:59 General appearance: Present: mild distress, obese - EENT Eyes: Present: PERRL ENT: hearing intact, clear oral mucosa - Neck Neck: Present: supple, normal ROM - Respiratory Respiratory effort: normal Respiratory: bilateral: CTA - Cardiovascular Heart Sounds: Present: S1 & S2. Absent: rub, click - Extremities Extremities: pulses symmetrical, No edema Peripheral Pulses: within normal limits - Abdominal General gastrointestinal: Present: soft, non-tender, non-distended, normal bowel sounds Male genitourinary: Present: normal - Integumentary Integumentary: Present: clear, warm, dry - Musculoskeletal Musculoskeletal: generalized weakness - Psychiatric Psychiatric: no intact judgment & insight, no memory intact, agitated - Neurologic Neurologic: CNII-XII intact, moves all extremities, no gait normal Results - Labs CBC & Chem 7: 12/15/17 09:38 12/15/17 14:55 Labs: Abnormal lab results 12/15/17 12/15/17 12/15/17 Range/Units 09:38 14:55 14:55 WBC 16.8 H (4.5-11.0) K/mm3 RBC 6.18 H (3.65-5.03) M/mm3 Hgb 17.1 H (11.8-15.2) gm/dl Hct 52.6 H (35.5-45.6) % Sodium 135 L (137-145) mmol/L Potassium 5.8 H (3.6-5.0) mmol/L Carbon Dioxide 19 L (22-30) mmol/L Magnesium 3.00 H (1.7-2.3) mg/dL Total Creatine Kinase (55-170) units/L Carbamazepine (4-12) ug/mL 12/15/17 12/15/17 Range/Units 14:55 14:55 WBC (4.5-11.0) K/mm3 RBC (3.65-5.03) M/mm3 Hgb (11.8-15.2) gm/dl Hct (35.5-45.6) % Sodium (137-145) mmol/L Potassium (3.6-5.0) mmol/L Carbon Dioxide (22-30) mmol/L Magnesium (1.7-2.3) mg/dL Total Creatine Kinase 1526 H (55-170) units/L Carbamazepine 2.0 L (4-12) ug/mL Assessment and Plan - Patient Problems (1) Encephalopathy Current Visit: Yes Status: Acute Plan to address problem: CT head, neuro checks, IVF resuscitation, aspiration precautions. (2) Rhabdomyolysis Current Visit: No Status: Acute Qualifiers: Rhabdomyolysis type: non-traumatic Qualified Code(s): M62.82 - Rhabdomyolysis Plan to address problem: IVF resuscitation, monitor uop q shift, repeat ck in am, monitor serum creatnine. (3) Status epilepticus Current Visit: No Status: Acute Plan to address problem: keppra, Tegretol, Tegretol level, seizure precautions, (4) DVT prophylaxis Current Visit: No Status: Acute
[2017-12-15 18:08] VITALS: BP 128/64
[2017-12-15] MEDS ORDERED: PERCOCET 5/325 PO PRN (18:18)
[2017-12-15] MEDS ORDERED: TYLENOL PO PRN (18:21)
[2017-12-15] MEDS ORDERED: PROVENTIL IH PRN (18:21)
[2017-12-15] MEDS ORDERED: SODIUM CHLORIDE FLUSH SYRINGE 10 ML IV PRN (18:21)
[2017-12-15] MEDS ORDERED: ZOFRAN IV PRN (18:21)
--- NOTE | 2017-12-15 18:23 | Cat Scan Report ---
FINAL REPORT PROCEDURE: CT HEAD/BRAIN WO CON TECHNIQUE: Computerized tomography of the head was performed without contrast material. HISTORY: seizure, ams, prolonged postictal period COMPARISON: 08/25/2017 FINDINGS: There is no evidence of intracranial mass, hemorrhage, acute territorial infarction, or hydrocephalus. The intracranial arteries are symmetric in density. Calvarium is intact. Visualized paranasal sinuses and mastoids are aerated. IMPRESSION: No CT evidence of acute intracranial abnormality
[2017-12-15] MEDS ORDERED: HALDOL IM PRN (18:26)
[2017-12-15] MEDS ORDERED: KIONEX PO ONE (18:43)
[2017-12-15] MEDS ORDERED: NACL 0.45% 1000 ML 1,000 ML IV SCH (19:00)
[2017-12-15] MEDS ORDERED: KEPPRA PO SCH (22:00)
[2017-12-15] MEDS ORDERED: SODIUM CHLORIDE FLUSH SYRINGE 10 ML IV SCH (22:00)
== END 2017-12-16 02:24 | disposition left against medical advice (07) | DRG 100 ==
LOC: ED 08:14 → 3A 18:21
PROVIDERS: ADMIT Internal Medicine; ATTEND Internal Medicine
DX: G40.401 Other generalized epilepsy and epileptic syndromes, not intractable, with status epilepticus (principal); G93.40 Encephalopathy, unspecified; M62.82 Rhabdomyolysis; D72.829 Elevated white blood cell count, unspecified; Z53.21 Procedure and treatment not carried out due to patient leaving prior to being seen by health care provider; E87.5 Hyperkalemia; Z91.19 Patient's noncompliance with other medical treatment and regimen; Z88.0 Allergy status to penicillin; Z91.14 Patient's other noncompliance with medication regimen
CPT/HCPCS: 36415; 70450; 80048; 80156; 80307; 81001; 82550; 82962; 83735; 84132; 85027; 93005; 93010; 96360; 96372; J2060; J7030

== ENCOUNTER 2017-12-28 03:47 | Inpatient (IN) | payer SELFPAY ==
[2017-12-28] MEDS ORDERED: KEPPRA 1,000 MG/NS 0.75% 100ML 1,000 MG/100 ML BAG IV ONE ×2 (04:15→16:00)
[2017-12-28 05:27] LABS: Hematocrit 42.2 % (35.5-45.6); Hemoglobin 14.1 gm/dl (11.8-15.2); Mean Corpuscular HGB Conc 33 % (32-34); Mean Corpuscular Hemoglobin 28 pg (28-32); Mean Corpuscular Volume 84 fl (84-94); Platelet Count 153 K/mm3 (140-440); Red Cell Distribution Width 14.4 % (13.2-15.2)
[2017-12-28 05:41] LABS: BUN/Creatinine Ratio 9; Blood Urea Nitrogen 11 mg/dL (9-20); Calcium 8.2 mg/dL (8.4-10.2); Hemolysis Index 6
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
[2017-12-28 07:22] LABS: Bilirubin,Urine NEG (Negative); Blood,Urine NEG (Negative); Color,Urine Yellow (Yellow); Protein,Urine <15 mg/dL mg/dL (Negative); Urobilinogen,Urine < 2.0 mg/dL (<2.0)
[2017-12-28 07:31] LABS: Amphetamine Screen,Urine PRESUMPTIVE NEGATIVE; Benzodiazepines Screen,Urine PRESUMPTIVE NEGATIVE; Cocaine Screen,Urine PRESUMPTIVE NEGATIVE; Methadone Screen,Urine PRESUMPTIVE NEGATIVE; Opiate Screen,Urine PRESUMPTIVE NEGATIVE
[2017-12-28] MEDS ORDERED: NACL 0.9% 500 ML 500 ML IV ONE (07:37)
[2017-12-28 07:43] LABS: Cannabinoid Screen,Urine PRESUMPTIVE POSITIVE
[2017-12-28] MEDS ORDERED: ATIVAN IV ONE (08:06)
--- NOTE | 2017-12-28 09:36 | Cat Scan Report ---
CT HEAD WITHOUT CONTRAST: HISTORY: Seizures, altered mental status. TECHNIQUE: Sequential 2.5mm CT images. COMPARISON: 12/15/17. FINDINGS: Cerebral Parenchyma: Within normal limits. Cerebellum: Within normal limits. Brainstem: Within normal limits. Ventricles: Normal. Sella: Normal. Extra-axial spaces: Normal. Basal Cisterns: Normal. Intracranial Hemorrhage: None. Midline Shift: None. Calvarium: Normal. Sinuses: Normal. Mastoid Air Cells: Normal. Visualized Orbits: Normal. IMPRESSION: Cranial CT scan within normal limits.
[2017-12-28] MEDS ORDERED: KEPPRA PO SCH ×3 (10:00→18:00)
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
[2017-12-28] MEDS ORDERED: TYLENOL PO PRN (10:06)
[2017-12-28] MEDS ORDERED: ATIVAN IV PRN (10:06)
[2017-12-28] MEDS ORDERED: ZOFRAN ONE (11:46)
[2017-12-28] MEDS ORDERED: ZOFRAN IV PRN (12:07)
[2017-12-28] MEDS ORDERED: KEPPRA 1,000 MG in NACL 0.9% 100 ML IV SCH (16:00)
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
--- NOTE | 2017-12-28 19:50 | Event Note ---
Date: 12/28/17 Patient wanted to leave against medical advise, I went and talked to the patient along with his nurse Also discussed with his fiance over the phone, and advised strongly to stay for further evaluation and management of seizures However the patient and his fiance refused to stay and wanted to leave AGAINST MEDICAL ADVICE Medicine consequences explained to the patient, verbalized understanding and told me that he has been dealing with for many years And he knows about his own seizures. Insisted on leaving AMA
[2017-12-28 19:52] VITALS: BP 136/82
[2017-12-28] MEDS ORDERED: COLACE PO SCH (22:00)
[2017-12-28] MEDS ORDERED: PEPCID PO SCH (22:00)
[2017-12-29] MEDS ORDERED: LOVENOX SUB-Q SCH (10:00)
--- NOTE | 2017-12-29 16:29 | Discharge Summary ---
Providers - Providers Date of Admission: 12/28/17 10:04 Date of discharge: 12/28/17 Attending physician: MEREDITH ARORA 12/28/17 10:12 Consult to Physician [CONS] Routine Comment: LEFT MESSAGE AT EXT [id number] Consulting Provider: ANDREW SANDERS Physician Instructions: Reason For Exam: seizure Primary care physician: JERMAIN BECERRA Hospitalization Reason for admission: seizures Condition: Fair Pertinent studies: CT head without contrast Hospital course: 32-year-old morbidly obese male patient with significant history of seizure disorder well known to us services Non-comprehensive medications was admitted through emergency room with new episodes of seizure Patient was symptomatically managed admitted to the hospital subsequently evaluated by neurologist Patient later however did not want to stay in the hospital Wanted to leave AGAINST MEDICAL ADVICE, recent consequences and complications of leaving AMA Was explained to the patient and his fiance, both of them verbalized understanding Insistent on leaving AMA sign the necessary papers and left the hospital. The patient and fiance advised to seek medical attention LEYLA if he has any new episodes of seizure Contact M.D. or go to emergency room Disposition: DC-07 LEFT AGAINST MED ADVICE Time spent for discharge: 31 MIN Core Measure Documentation - Palliative Care Palliative Care/ Comfort Measures: Not Applicable - Core Measures Any of the following diagnoses?: none Exam - Constitutional Vitals: Temp Pulse Resp BP Pulse Ox 98 F 76 16 136/82 100 12/28/17 19:30 12/28/17 19:30 12/28/17 19:30 12/28/17 19:30 12/28/17 19:30 General appearance: Present: no acute distress, well-nourished - EENT Eyes: Present: PERRL, EOM intact - Neck Neck: Present: supple, normal ROM - Respiratory Respiratory effort: normal Respiratory: bilateral: diminished, negative: rales, rhonchi, wheezing - Cardiovascular Rhythm: regular Heart Sounds: Present: S1 & S2 - Extremities Extremities: no ischemia, No edema - Abdominal General gastrointestinal: Present: soft, non-tender - Integumentary Integumentary: Present: clear, warm - Musculoskeletal Musculoskeletal: strength equal bilaterally, generalized weakness - Psychiatric Psychiatric: appropriate mood/affect, cooperative - Neurologic Neurologic: CNII-XII intact, moves all extremities Plan Additional Instructions: Left AGAINST MEDICAL ADVICE Follow up with: JERMAIN BECERRA MD [Primary Care Provider] - 3-5 Days Forms: AMA Form
== END 2017-12-29 00:05 | disposition left against medical advice (07) | DRG 100 ==
LOC: ED 03:47 → 3A 10:04
PROVIDERS: ADMIT Internal Medicine; ATTEND Internal Medicine
DX: G40.219 Localization-related (focal) (partial) symptomatic epilepsy and epileptic syndromes with complex partial seizures, intractable, without status epilepticus (principal); G93.40 Encephalopathy, unspecified; E66.01 Morbid (severe) obesity due to excess calories; T42.1X5A Adverse effect of iminostilbenes, initial encounter; F17.200 Nicotine dependence, unspecified, uncomplicated; G47.30 Sleep apnea, unspecified; Y92.89 Other specified places as the place of occurrence of the external cause; Z82.49 Family history of ischemic heart disease and other diseases of the circulatory system; Z88.0 Allergy status to penicillin
CPT/HCPCS: 36415; 70450; 80048; 80156; 80164; 80307; 80320; 81001; 82550; 82962; 83735; 85027; 93005; 93010; 96374; 96375; G0480; J1953; J2060; J2405; J7040

== ENCOUNTER 2018-04-09 06:54 | Emergency (ER) | payer SELFPAY ==
[2018-04-09] MEDS ORDERED: KEPPRA 1,000 MG/NS 0.75% 100ML 1,000 MG/100 ML BAG IV ONE (07:17)
[2018-04-09 07:42] LABS: Hematocrit 42.3 % (35.5-45.6); Hemoglobin 13.8 gm/dl (11.8-15.2); Mean Corpuscular HGB Conc 33 % (32-34); Mean Corpuscular Hemoglobin 28 pg (28-32); Mean Corpuscular Volume 87 fl (84-94); Platelet Count 152 K/mm3 (140-440); Red Blood Count 4.85 M/mm3 (3.65-5.03); Red Cell Distribution Width 15.6 % (13.2-15.2)
[2018-04-09 07:59] LABS: BUN/Creatinine Ratio 12; Blood Urea Nitrogen 13 mg/dL (9-20); Hemolysis Index 2
--- NOTE | 2018-04-09 09:15 | Emergency Department Report ---
ED General Adult HPI - General Chief complaint: Seizure Stated complaint: SEIZURE Time Seen by Provider: 04/09/18 07:14 Source: EMS Mode of arrival: Stretcher Limitations: Altered Mental Status - History of Present Illness Initial comments: On my encounter this patient is postictal. He is arousable. He is maintaining his airway. He is not providing any historical information. Serial exam will be performed. He arrived at this facility after a generalized seizure. He has a history of seizure disorder. He was given 10 mg of Versed intranasally by the EMS staff. - Related Data Previous Rx's Medication Instructions Recorded Last Taken Type carBAMazepine [TEGretol] 200 mg PO TID #90 tablet 04/09/18 Unknown Rx levETIRAcetam [Keppra] 500 mg PO BID #60 tablet 04/09/18 Unknown Rx Allergies Allergy/AdvReac Type Severity Reaction Status Date / Time Penicillins Allergy Rash Verified 04/09/18 07:01 ED Review of Systems ROS: Stated complaint: SEIZURE Other details as noted in HPI Comment: Unobtainable due to pts medical conditions ED Past Medical Hx - Past Medical History Hx Congestive Heart Failure: No Hx Diabetes: No Hx Seizures: Yes (Grand Mal) Hx Asthma: No Hx COPD: No Hx HIV: No Additional medical history: closed head injury 2003 - Surgical History Additional Surgical History: left hand surgery. left leg surgery- steel rafael - Social History Smoking Status: Unknown if ever smoked Substance Use Type: Other - Medications Home Medications: Home Medications Medication Instructions Recorded Confirmed Last Taken Type carBAMazepine [TEGretol] 200 mg PO TID #90 tablet 04/09/18 Unknown Rx levETIRAcetam [Keppra] 500 mg PO BID #60 tablet 04/09/18 Unknown Rx ED Physical Exam - General Limitations: Altered Mental Status, Other (postictal) General appearance: lethargic - Head Head exam: Present: atraumatic - Eye Eye exam: Present: PERRL - ENT ENT exam: Present: normal exam - Neck Neck exam: Present: normal inspection. Absent: tenderness, meningismus - Respiratory Respiratory exam: Present: normal lung sounds bilaterally. Absent: respiratory distress - Cardiovascular Cardiovascular Exam: Present: regular rate, normal rhythm - GI/Abdominal GI/Abdominal exam: Present: soft, normal bowel sounds. Absent: distended, tenderness, guarding, rebound, rigid - Extremities Exam Extremities exam: Present: normal inspection - Back Exam Back exam: Present: normal inspection - Neurological Exam Neurological exam: Present: other (lethargic no apparent focal deficit) - Skin Skin exam: Present: warm, dry, intact, normal color. Absent: rash ED Course Vital Signs 04/09/18 04/09/18 04/09/18 07:16 08:00 08:30 Temperature 97.8 F Pulse Rate 88 82 75 Respiratory 18 18 18 Rate Blood Pressure Blood Pressure 116/78 121/88 128/79 [Right] O2 Sat by Pulse 96 97 98 Oximetry 04/09/18 04/09/18 04/09/18 09:15 09:30 09:45 Temperature Pulse Rate Respiratory Rate Blood Pressure 136/92 136/86 Blood Pressure [Right] O2 Sat by Pulse 100 95 96 Oximetry 04/09/18 04/09/18 04/09/18 10:00 10:15 10:30 Temperature Pulse Rate Respiratory Rate Blood Pressure 146/91 136/86 140/84 Blood Pressure [Right] O2 Sat by Pulse 96 95 99 Oximetry - Reevaluation(s) Reevaluation #1: Mental status is improving. Nonfocal neurological exam. 04/09/18 09:53 Reevaluation #2: Patient's mental status is continuing to improve. Denies any history of diabetes although his fasting sugar is 100. He is a bit obese. I think he is type II. He states he has a primary care physician. He also now states he bumped his head a couple of times during the seizure. I'm going to send him for a CT scan. 04/09/18 12:38 Reevaluation #3: CT of the head was negative. The patient is neurologically intact. He is appropriate for disposition home. Nurse tells me that his called. She stated to the nurse that he is chronically noncompliant. She usually "please send here for at least 8 hours until he wakes up". 04/09/18 14:28 ED Medical Decision Making - Lab Data Result diagrams: 04/09/18 07:11 04/09/18 07:11 Laboratory Results - last 24 hr 04/09/18 04/09/18 07:11 07:11 WBC 9.6 RBC 4.85 Hgb 13.8 Hct 42.3 MCV 87 MCH 28 MCHC 33 RDW 15.6 H Plt Count 152 Sodium 140 Potassium 4.1 Chloride 101.1 Carbon Dioxide 19 L Anion Gap 24 BUN 13 Creatinine 1.1 Estimated GFR > 60 BUN/Creatinine Ratio 12 Glucose 191 H Calcium 9.0 Critical care attestation.: If time is entered above; I have spent that time in minutes in the direct care of this critically ill patient, excluding procedure time. ED Disposition Clinical Impression: Seizure, Noncompliance with medication regimen, History of seizure disorder Disposition: OP ADMIT IP TO THIS HOSP Is pt being admited?: No Does the pt Need Aspirin: No Condition: Stable Instructions: Recurrent Seizures Adult (ED) Additional Instructions: Follow-up with primary care provider. Taking her seizure medicine will likely result in less trips to the emergency department and less risk of serious head or other injury. Prescriptions: carBAMazepine [TEGretol] 200 mg PO TID #90 tablet levETIRAcetam [Keppra] 500 mg PO BID #60 tablet Referrals: PRIMARY CAREMD [Primary Care Provider] - 3-5 Days [facility] [Provider Group] - 3-5 Days Time of Disposition: 14:35
[2018-04-09 09:47] LABS: Bacteria,Urine 1+ /HPF (Negative); Bilirubin,Urine NEG (Negative); Blood,Urine SM (Negative); Color,Urine Yellow (Yellow); Mucus,Urine FEW /HPF; Urobilinogen,Urine < 2.0 mg/dL (<2.0)
[2018-04-09 09:49] LABS: Amphetamine Screen,Urine PRESUMPTIVE NEGATIVE; Cocaine Screen,Urine PRESUMPTIVE NEGATIVE; Methadone Screen,Urine PRESUMPTIVE NEGATIVE; Opiate Screen,Urine PRESUMPTIVE NEGATIVE
[2018-04-09 10:12] LABS: Benzodiazepines Screen,Urine PRESUMPTIVE POSITIVE; Cannabinoid Screen,Urine PRESUMPTIVE POSITIVE
[2018-04-09 10:48] VITALS: BP 140/84
--- NOTE | 2018-04-09 13:56 | Cat Scan Report ---
FINAL REPORT EXAM: CT HEAD/BRAIN WO CON HISTORY: head trauma with seizure TECHNIQUE: Noncontrast CT axial images of the brain. PRIORS: 28 December 2017. FINDINGS: No parenchymal mass, mass effect, hemorrhage, midline shift or hydrocephalus. No evidence of acute cortical infarct. No abnormal, extra-axial fluid or air collection. Osseous calvarium grossly intact. Probable small mucous retention cysts versus polyps in the left maxillary sinus. IMPRESSION: 1. No acute intracranial findings.
[2018-04-09] MEDS ORDERED: ZOFRAN ODT ONE (15:13)
== END 2018-04-09 15:00 | disposition admitted as inpatient to this hospital (09) ==
LOC: ED 06:54
DX: G40.909 Epilepsy, unspecified, not intractable, without status epilepticus (principal); Z91.14 Patient's other noncompliance with medication regimen; Z88.0 Allergy status to penicillin
CPT/HCPCS: 36415; 70450; 80048; 80307; 81001; 85027; 96365; 99285; J1953; Q0162

== ENCOUNTER 2019-06-25 15:52 | Emergency (ER) | payer SELFPAY ==
[~2019-06-25 15:52] MED LIST: EPINEPHrine 1:10,000 1 MG/10 ML SYRINGE ONE; SODIUM BICARB 8.4% 50 MEQ/50 ML SYRINGE IV ONE
--- NOTE | 2019-06-25 16:07 | Emergency Department Report ---
ED CPR HPI - General Stated Complaint: CARDIAC ARREST Time Seen by Provider: 06/25/19 16:00 Source: EMS - History of Present Illness Initial Comments: 34-year-old male presents to ED and cardiac arrest. Patient has history of sei erica. EMS states that they were called out for this patient on a seizure call earlier in the day, however patient refused transport at that time. Patient apparently had another seizure for which 911 was called. Upon EMS arrival, patient was face down lying on the floor. They state he was initially breathing, however upon turning him over, patient apparently lost pulses and stop breathing. Patient's initial rhythm was asystole. Patient given epi 3, with continued arrest. Patient has been down for 45 minutes at the time of ED arrival. MD Complaint: stopped breathing -: minute(s) (45) Place: home Bystander CPR Performed: No ROSC in the Field: No Associated Injuries: No Associated Symptoms: other (seizure activity reported) Treatments Prior to Arrival: BMV, chest compressions, epinephrine mgs # (3) - Related Data Home Medications Medication Instructions Recorded Confirmed Last Taken ALPRAZolam [Xanax TAB] 0.5 mg PO Q6H PRN 06/25/19 06/25/19 Unknown Oxycodone HCl/Acetaminophen 1 each PO Q8HR PRN 06/25/19 06/25/19 Unknown [Percocet 10/325 mg] Sertraline [Zoloft] 50 mg PO QDAY 06/25/19 06/25/19 Unknown Allergies Allergy/AdvReac Type Severity Reaction Status Date / Time Penicillins Allergy Rash Verified 04/09/18 07:01 ED Review of Systems ROS: Stated complaint: CARDIAC ARREST Other details as noted in HPI ED Past Medical Hx - Past Medical History Hx Congestive Heart Failure: No Hx Diabetes: No Hx Seizures: Yes ([place] Mal) Hx Asthma: No Hx COPD: No Hx HIV: No Additional medical history: closed head injury 2003 - Surgical History Additional Surgical History: left hand surgery. left leg surgery- steel rafael - Social History Smoking Status: Unknown if ever smoked Substance Use Type: Other - Medications Home Medications: Home Medications Medication Instructions Recorded Confirmed Last Taken Type ALPRAZolam [Xanax TAB] 0.5 mg PO Q6H PRN 06/25/19 06/25/19 Unknown History Oxycodone HCl/Acetaminophen 1 each PO Q8HR PRN 06/25/19 06/25/19 Unknown History [Percocet 10/325 mg] Sertraline [Zoloft] 50 mg PO QDAY 06/25/19 06/25/19 Unknown History ED Medical Decision Making - Medical Decision Making 34-year-old male presents to ED in cardiac arrest. Asystole in the field. Asystole here in the ED. Bicarbonate be given here in the ED. Patient already down for 45 minutes upon ED arrival, as EMS reports patient initially went down at approximately 15:00. Intubation was attempted, there was color change on the CO2 detector, however, I did not hear adequate breath sounds, so tube was removed and BVM continued. Since it has been 1 hour of ongoing CPR with this patient and asystolic rhythm, I did not see any benefit to surgical airway as he was easily bagged w/ BVM. Time of was called at 15:58. See nurse's note for details. - Differential Diagnosis arrythmia, intracranial bleed, PE, seizure Critical care attestation.: If time is entered above; I have spent that time in minutes in the direct care of this critically ill patient, excluding procedure time. ED Disposition Clinical Impression: Cardiac arrest Disposition: DC-20 Is pt being admited?: No Condition: Stable
== END 2019-06-25 20:00 ==
LOC: ED 15:52
DX: I46.9 Cardiac arrest, cause unspecified (principal)
CPT/HCPCS: 99285; J0171